=== PATIENT | female | born 1980 | race Hispanic/Latino ===

== ENCOUNTER 2018-07-12 08:25 | Day surgery (SDC) | payer OTHER ==
--- OUTSIDE RECORDS SUMMARY | 2018-07-12 08:32 | XMS REPORT | Clinical Summary ---
:1980 Author Organization [facility] Address [address] [place] [id number] Care Team Providers Name Role Phone Asked, No Pcp Primary Care Provider Unavailable Allergies Active Allergy Reactions Severity Noted Date Comments Iodine And Iodide Containing Shortness Of Breath High 02/13/2017 Injectable dye Products Sulfa (Sulfonamide Rash Low 02/13/2017 Antibiotics) Medications Medication Sig Dispensed Refills Start Date End Date Status acetaZOLAMIDE (DIAMOX) Take 500 mg by 0 Active 500 mg capsule mouth 2 (two) times a day. topiramate (TOPAMAX) 25 Take 25 mg by 0 Active MG tablet mouth 2 (two) times a day. losartan (COZAAR) 50 MG Take 50 mg by 0 Active tablet mouth daily. Active Problems Problem Noted Date Kidney stone 02/13/2017 Family History Medical History Relation Name Comments Urolithiasis Brother Diabetes Father Heart disease Father Hypertension Father Diabetes Mother Heart disease Mother Hypertension Mother Diabetes Sister Relation Name Status Comments Brother Father Mother Sister Social History Tobacco Use Types Packs/Day Years Used Date Never Smoker Tobacco Cessation: Counseling Given: No Alcohol Use Drinks/Week oz/Week Comments Yes 1 Glasses of wine 0.6 rarely -last weks ago Sex Assigned at Date Recorded Not on file Job Start Date Occupation Industry Not on file Not on file Not on file Travel History Travel Start Travel End No recent travel history available. Last Filed Vital Signs Not on file Plan of Treatment Health Maintenance Due Date Last Done Comments CERVICAL CANCER SCREENING 2001 INFLUENZA VACCINE 12/27/2017 Results Not on fileafter 07/11/2017 Insurance Payer Benefit Plan / Group Subscriber ID Type Phone Address CIGNA CIGNA PPO xxxxxxxxxxx PPO CIGNA CIGNA HMO/POS xxxxxxxxxxx HMO Advance Directives Patient has advance care planning documents, and code status on file. For more information, please contact:[place] [address] Code Status Date Activated Date Inactivated Comments Full Code 02/13/2017 10:58 PM 02/14/2017 7:22 PM Code Status decision reached by: Patient
[2018-07-12 09:49] LABS: Protime INR 1.04
[2018-07-12 10:23] LABS: Platelet Estimate INCR; Platelets, Giant FEW
--- NOTE | 2018-07-12 12:27 | RAD REPORT ---
EXAM DESCRIPTION: RAD - Lumbar Puncture For Dx - 07/12/2018 12:11 pm CLINICAL HISTORY: Headache, pseudotumor cerebri COMPARISON: January 2018 TECHNIQUE: The procedure, risks and alternatives to the procedure were discussed with the patient in detail. After answering all questions, both oral and written consent were obtained. Time-out proced ure was performed. Patient had no contraindicated allergy or medication history. The patient was placed in an oblique prone position on the fluoroscopic table. The skin of the lower back was prepped and draped in the usual sterile fashion. After anesthetizing the skin and deeper sof t tissues with 1% lidocaine, a 22 gauge needle was advanced into the thecal sac at the L3 level. Intrathecal placement was confirmed. Clear colorless CSF was observed. Opening pressure was 12. A hig h-volume LP was then initiated. A total of 25 milliliters of clear colorless CSF removed. At the conclusion of the procedure, the needle was withdrawn and a sterile bandage placed over the pu ncture site. The patient tolerated the procedure well without immediate complications. Post-procedu re care and precaution instructions were discussed with the patient before the LP procedure. IMPRESSION: Successful fluoroscopic guided lumbar puncture. Opening pressure was 12. A total of 25 milliliters of clear colorless CSF removed.
== END 2018-07-12 13:10 | disposition home or self-care (01) ==
LOC: RAD 08:25 → EDSTATUS 10:00 → RAD 13:10
PROVIDERS: ATTEND Psychiatry & Neurology Neurology with Special Qualifications in Child Neurology
DX: G93.2 Benign intracranial hypertension (principal); R51 Headache
CPT/HCPCS: 36415; 77003; 85049; 85610; 85730

== ENCOUNTER 2018-10-23 08:36 | Day surgery (SDC) | payer OTHER ==
--- OUTSIDE RECORDS SUMMARY | 2018-10-23 08:47 | XMS REPORT | Clinical Summary ---
:1980 Author Organization [facility] Address [address] [place] [id number] Care Team Providers Name Role Phone Asked, [...] Health Maintenance Due Date Last Done Comments INFLUENZA VACCINE 12/27/2018 Results Not on fileafter 10/22/2017 Advance Directives Patient has advance care planning documents, and code status on file. For more information, please contact:Jose Elias [address] [place] [address] Code Status Date Activated Date Inactivated Comments Full Code 02/13/2017 10:58 PM 02/14/2017 7:22 PM Code Status decision reached by: Patient
--- OUTSIDE RECORDS SUMMARY | 2018-10-23 08:47 | XMS REPORT | Clinical Summary ---
:1980 Author Organization [facility] Address [address] [place] [address] Care Team Providers Name Role Phone Asked, [...] more information, please contact:Jose Elias [address] [place] [address] Code Status Date Activated Date Inactivated Comments Full Code 02/13/2017 10:58 PM 02/14/2017 7:22 PM Code Status decision reached by: Patient
--- OUTSIDE RECORDS SUMMARY | 2018-10-23 08:48 | XMS REPORT | Clinical Summary ---
:1980 Author Organization [facility] Address [address] [place] [address] Care Team Providers Name Role Phone Asked, [...] more information, please contact:Jose Elias [address] [place] [address] Code Status Date Activated Date Inactivated Comments Full Code 02/13/2017 10:58 PM 02/14/2017 7:22 PM Code Status decision reached by: Patient
[2018-10-23 09:20] LABS: Absolute Lymphocytes (CBC) 2.4 K/uL (0.7-4.9); Absolute Monocytes 0.4 K/uL (0.1-1.3); Absolute Neutrophil 5.5 K/uL (1.8-8.0); Basophils % 0.6 % (0-1.3); Eosinophils % 1.9 % (0-4.4); Hematocrit 37.3 % (36.0-45.0); Lymphocytes % 27.8 % (15.3-44.8); Monocytes % 4.4 % (3.3-12.3); RBC Red Blood Cell Count 4.53 M/uL (3.86-4.86)
[2018-10-23 09:24] LABS: Protime INR 1.11
--- NOTE | 2018-10-23 11:49 | RAD REPORT ---
EXAM DESCRIPTION: RAD - Lumbar Puncture For Dx - 10/23/2018 11:41 am CLINICAL HISTORY: G93.2 COMPARISON: Multiple prior high volume lumbar puncture procedures TECHNIQUE: The procedure, risks and alternatives to the procedure were discussed with the patient in detail. After answering all questions, both oral and written consent were obtained. Time-out procedu re was performed. Patient had no contraindicated allergy or medication history. PT/INR studies were n ormal range. The patient was placed in an oblique prone position on the fluoroscopic table. The skin of the lower back was prepped and draped in the usual sterile fashion. After anesthetizing the skin and deeper sof t tissues with 1% lidocaine, a 22 gauge needle was advanced into the thecal sac at the L3 level. Intrathecal placement was confirmed. Clear colorless CSF was observed. Opening pressure was 14. A hig h-volume lumbar puncture procedure was then performed. A total of 31 cc of CSF was removed. At the conclusion of the procedure the needle was withdrawn and a sterile bandage placed over the pun cture site. The patient tolerated the procedure well without immediate complications. Post-procedure care and precaution instructions were discussed with the patient before the LP procedure. Patient was transferred back to same-day surgery for postprocedure care. IMPRESSION: Successful fluoroscopic guided high-volume lumbar puncture. Opening pressure was 14. A total of 31 mL was removed.
== END 2018-10-23 13:08 | disposition home or self-care (01) ==
LOC: RAD 08:36 → EDSTATUS 10:00 → DS 13:08
PROVIDERS: ATTEND Psychiatry & Neurology Neurology with Special Qualifications in Child Neurology
PROC: 009U3ZX Drainage of Spinal Canal, Percutaneous Approach, Diagnostic (ICD-10-PCS; principal; 2018-10-23)
PROC: B01BZZZ Fluoroscopy of Spinal Cord (ICD-10-PCS; 2018-10-23)
DX: G93.2 Benign intracranial hypertension (principal); G57.12 Meralgia paresthetica, left lower limb
CPT/HCPCS: 36415; 77003; 85025; 85610; 85730

== ENCOUNTER 2018-10-24 16:50 | Emergency (ER) | payer OTHER ==
[2018-10-24] MEDS ORDERED: FAMOTIDINE 20 MG/2 ML VIAL IV ONE (17:23)
[2018-10-24] MEDS ORDERED: NA CHLORIDE 0.9% 500 ML ONE (17:23)
[2018-10-24] MEDS ORDERED: METHYLPREDNISOLONE 125 MG INJ ONE (17:23)
[2018-10-24] MEDS ORDERED: EPINEPHRINE/PF 1 MG/ML AMP ONE (17:35)
[2018-10-24] MEDS ORDERED: EPINEPHrine 1 MG/10 ML SYR ONE (17:36)
[2018-10-24] MEDS ORDERED: NA CHLORIDE 0.9% 1,000 ML ONE (20:09)
--- NOTE | 2018-10-24 21:48 | EDPHYS ---
Physician Documentation [facility] Name: Melba Centeno Age: 38 yrs Sex: Female : 1980 Arrival Date: 10/24/2018 Time: 16:51 Bed 5 Private MD: ED Physician Kermit Mcclain HPI: 10/24 17:59 This 38 yrs old Female presents to ER via EMS with complaints of Allergic jr8 Reaction. 17:59 The patient presents with itching, rash, redness of skin, swelling of the lips. Onset: jr8 The symptoms/episode began/occurred acutely, today. Associated signs and symptoms: The patient has no apparent associated signs or symptoms. Possible causes: The patient has no known obvious cause for the symptoms. At home the patient or guardian has treated the symptoms with nothing. Severity of symptoms: At their worst the symptoms were moderate in the emergency department the symptoms have improved mildly. The patient has not experienced similar symptoms in the past. The patient has not recently seen a physician. EMS gave Benadryl 50mg IV enroute . Historical: - Allergies: 16:56 Iodinated Contrast Media - IV Dye; iw 16:56 Sulfa (Sulfonamide Antibiotics); iw - Home Meds: 17:28 Diamox Sequels Oral [Active]; losartan 50 mg Oral tab 1 tab once daily [Active]; sg Topamax Oral [Active]; - PMHx: 17:28 intracranial hypertension; sg - Immunization history:: Adult Immunizations up to date. - Social history:: Smoking status: Patient/guardian denies using tobacco. - Ebola Screening: : No symptoms or risks identified at this time. ROS: 17:59 Eyes: Negative for injury, pain, redness, and discharge. Positive for periorbital jr8 swelling ENT: Negative for injury, pain, and discharge, Neck: Negative for injury, pain, and swelling, Cardiovascular: Negative for chest pain, palpitations, and edema, Respiratory: Negative for shortness of breath, cough, wheezing, and pleuritic chest pain, Abdomen/GI: Negative for abdominal pain, nausea, vomiting, diarrhea, and constipation, Back: Negative for injury and pain, MS/Extremity: Negative for injury and deformity, Neuro: Negative for headache, weakness, numbness, tingling, and seizure. 17:59 Skin: Positive for erythema, rash, swelling. Exam: 17:59 Head/Face: Normocephalic, atraumatic. Eyes: Pupils equal round and reactive to light, jr8 extra-ocular motions intact. Lids and lashes normal. Conjunctiva and sclera are non-icteric and not injected. Cornea within normal limits. Periorbital areas with swelling and edema. ENT: Nares patent. No nasal discharge, no septal abnormalities noted. Tympanic membranes are normal and external auditory canals are clear. Oropharynx with no redness, swelling, or masses, exudates, or evidence of obstruction, uvula midline. Mucous membranes moist. Neck: Trachea midline, no thyromegaly or masses palpated, and no cervical lymphadenopathy. Supple, full range of motion without nuchal rigidity, or vertebral point tenderness. No Meningismus. Cardiovascular: Regular rate and rhythm with a normal S1 and S2. No gallops, murmurs, or rubs. Normal PMI, no JVD. No pulse deficits. Respiratory: Lungs have equal breath sounds bilaterally, clear to auscultation and percussion. No rales, rhonchi or wheezes noted. No increased work of breathing, no retractions or nasal flaring. Abdomen/GI: Soft, non-tender, with normal bowel sounds. No distension or tympany. No guarding or rebound. No evidence of tenderness throughout. Back: No spinal tenderness. No costovertebral tenderness. Full range of motion. MS/ Extremity: Pulses equal, no cyanosis. Neurovascular intact. Full, normal range of motion. Neuro: Awake and alert, GCS 15, oriented to person, place, time, and situation. Cranial nerves II-XII grossly intact. Motor strength 5/5 in all extremities. Sensory grossly intact. Cerebellar exam normal. Normal gait. 17:59 Skin: redness and urticaria noted diffusely to upper extremities, chest, and neck . Vital Signs: 17:15 BP 152 / 101; Pulse 118; Resp 20; Pulse Ox 99% on R/A; sg 18:12 BP 141 / 89; Pulse 126; Resp 18 S; Pulse Ox 98% on R/A; Pain 0/10; iw 18:24 BP 129 / 89; Pulse 119; Resp 18 S; Pulse Ox 99% on R/A; iw 19:15 BP 130 / 87; Pulse 122; Resp 19; Pulse Ox 98% on R/A; lp1 20:00 BP 117 / 81; Pulse 120; Resp 20; Pulse Ox 99% on R/A; Pain 0/10; lp1 21:58 BP 135 / 92; Pulse 123; Resp 18; Temp 97.3(TE); Pulse Ox 100% on R/A; Pain 0/10; ed1 MDM: 16:55 Patient medically screened. jr8 17:59 Data reviewed: vital signs, nurses notes. Data interpreted: Pulse oximetry: on room air jr8 is 99 %. Interpretation: normal. Counseling: I had a detailed discussion with the patient and/or guardian regarding: the historical points, exam findings, and any diagnostic results supporting the discharge/admit diagnosis. Transition of care: After a detail discussion of the patient's case, care is transferred to Dilshad Rapp NP. ED course: Patient doing well after epinephrine given. Will monitor for next few hours . 10/24 18:18 Order name: EKG Electrocardiogram; Complete Time: 18:17 EDMS Administered Medications: 17:12 Drug: SOLU-Medrol 125 mg Route: IVP; Site: left antecubital; iw 17:12 Drug: Pepcid 20 mg Route: IVP; Site: left antecubital; iw 17:12 Drug: NS 0.9% 500 ml Route: IV; Rate: bolus; Site: left antecubital; iw 17:25 Drug: EPINEPHrine 1mg/mL 1:1,000 0.3 mg Route: IM; Site: right deltoid; sg 20:00 Drug: NS 0.9% 1000 ml Route: IV; Rate: 1000 ml; Site: left forearm; lp1 21:24 Follow up: IV Status: Completed infusion; IV Intake: 1000ml lp1 Disposition: 10/25 07:07 Co-signature as Attending Physician, Kermit Mcclain MD I agree with the assessment and warner plan of care. Disposition: 10/24/18 21:47 Discharged to Home. Impression: Allergic reaction, unspecified - facial swelling, Urticaria, unspecified. - Condition is Stable. - Discharge Instructions: Allergies, Adult, Hives. - Prescriptions for Benadryl 25 mg Oral Capsule - take 1 capsule by ORAL route every 6 hours As needed; 30 tablet. Pepcid 20 mg Oral Tablet - take 1 tablet by ORAL route every 12 hours for 10 days; 20 tablet. Prednisone 20 mg Oral Tablet - take 3 tablet by ORAL route once daily for 5 days; 15 tablet. EpiPen 0.3 mg Injection auto- injector - inject 1 pen by INTRAMUSCULAR route one time As needed Inject into the outer portion of the thigh, through clothing if necessary. Indicated in the emergency treatment of allergic reactions; 1 unit. - Medication Reconciliation Form, Thank You Letter, Antibiotic Education, Prescription Opioid Use form. - Follow up: Emergency Department; When: As needed; Reason: Worsening of condition. Follow up: Private Physician; When: 2 - 3 days; Reason: Recheck today's complaints, Continuance of care, Re-evaluation by your physician. - Problem is new. - Symptoms have improved. Signatures: Dispatcher [employer] EDMS Jose Guaman, RN RN Kermit Gordillo MD MD cha Williams, Irene RN RN iw Rosita Grover RN RN ed1 Chata Lenz RN RN lp1 Darío Manuel PA PA jr8 Dilshad Rapp, PODIATRIST ORTHOPEDIC PODIATRIST ORTHOPEDIC pm1 Corrections: (The following items were deleted from the chart) 10/24 22:05 21:47 10/24/2018 21:47 Discharged to Home. Impression: Allergic reaction, unspecified - ed1 facial swellingUrticaria, unspecified. Condition is Stable. Forms are Medication Reconciliation Form, Thank You Letter, Antibiotic Education, Prescription Opioid Use. Follow up: Emergency Department; When: As needed; Reason: Worsening of condition. Follow up: Private Physician; When: 2 - 3 days; Reason: Recheck today's complaints, Continuance of care, Re-evaluation by your physician. Problem is new. Symptoms have improved. pm1
--- NOTE | 2018-10-24 21:48 | ER ---
Nurse's Notes [facility] Name: Melba Centeno Age: 38 yrs Sex: Female : 1980 Arrival Date: 10/24/2018 Time: 16:51 Bed 5 Private MD: Diagnosis: Urticaria, unspecified;Allergic reaction, unspecified - facial swelling Presentation: 10/24 16:53 Presenting complaint: EMS states: pt woke up this morning with some mild facial iw swelling, took 2 PO Benadryl and felt fine, then started having increased facial swelling while cleaning, also reported throat irritation, hives all over body, denies SOB, lungs CTA. Transition of care: patient was not received from another setting of care. Onset: The symptoms/episode began/occurred today. Anaphylaxis evaluation, no signs or symptoms of anaphylaxis were noted. Onset of symptoms was October 24, 2018. Risk Assessment: Do you want to hurt yourself or someone else? Patient reports no desire to harm self or others. Initial Sepsis Screen: Does the patient meet any 2 criteria? No. Patient's initial sepsis screen is negative. Does the patient have a suspected source of infection? No. Patient's initial sepsis screen is negative. Care prior to arrival: Medication(s) given: Benadryl 50 mg IVP IV initiated. 22 GA, in the left antecubital area, Med neb given. 16:53 Method Of Arrival: EMS: [facility] iw 16:53 Acuity: TAHIR 3 iw 17:12 Acuity: TAHIR 2 iw Historical: - Allergies: 16:56 Iodinated Contrast Media - IV Dye; iw 16:56 Sulfa (Sulfonamide Antibiotics); iw - Home Meds: 17:28 Diamox Sequels Oral [Active]; losartan 50 mg Oral tab 1 tab once daily [Active]; sg Topamax Oral [Active]; - PMHx: 17:28 intracranial hypertension; sg - Immunization history:: Adult Immunizations up to date. - Social history:: Smoking status: Patient/guardian denies using tobacco. - Ebola Screening: : No symptoms or risks identified at this time. Screenin:15 Abuse screen: Denies threats or abuse. Denies injuries from another. Nutritional sg screening: No deficits noted. Tuberculosis screening: No symptoms or risk factors identified. Never had TB. Fall Risk None identified. Assessment: 17:15 General: Appears in no apparent distress. well groomed, well developed, well nourished, sg Behavior is calm, cooperative, appropriate for age. Pain: Denies pain. Neuro: Level of Consciousness is awake, alert, obeys commands, Oriented to person, place, time, situation, Open Hearth Helper are equal bilaterally Moves all extremities. Full function Gait is steady, Speech is normal, Facial symmetry appears normal. Cardiovascular: Heart tones S1 S2 present Capillary refill is brisk in bilateral fingers Patient's skin is warm and dry. Chest pain is denied. Respiratory: Airway is patent Respiratory effort is even, unlabored, Respiratory pattern is regular, symmetrical, Breath sounds are clear bilaterally. GI: Abdomen is round non-distended, Bowel sounds present X 4 quads. : No signs and/or symptoms were reported regarding the genitourinary system. EENT: No signs and/or symptoms were reported regarding the EENT system. Derm: Skin is pink, warm \\T\\ dry. Rash noted that is urticaria. Musculoskeletal: No signs and/or symptoms reported regarding the musculoskeletal system. 17:46 Reassessment: Patient appears in no apparent distress at this time. Patient and/or iw family updated on plan of care and expected duration. Pain level reassessed. Patient is alert, oriented x 3, equal unlabored respirations, skin warm/dry/pink. pt states she is feeling better, throat irritation has decreased and swelling to right eye has decreased, family at bedside, VSS, pt tachycardiac at 118 bpm. 18:19 Reassessment: Patient appears in no apparent distress at this time. Patient and/or sg family updated on plan of care and expected duration. Pain level reassessed. Patient is alert, oriented x 3, equal unlabored respirations, skin warm/dry/pink. pt family at bedside at this time, pt denies N/V at this time, tolerating PO water Patient states feeling better. Patient states symptoms have improved. 19:09 Reassessment: Patient appears in no apparent distress at this time. Patient and/or sg family updated on plan of care and expected duration. Pain level reassessed. Patient is alert, oriented x 3, equal unlabored respirations, skin warm/dry/pink. Patient states feeling better. Patient states symptoms have improved. Reassessment: swelling to R eye has decreased. Respiratory: Airway is patent Respiratory effort is even, unlabored, Respiratory pattern is regular, symmetrical. Derm: Skin is pink, warm \\T\\ dry. 19:30 Reassessment: Patient appears in no apparent distress at this time. Patient states lp1 feeling better. Reassessment: Patient states feeling "jittery". EENT: swelling to right upper eye lid. Derm: Skin is pink, warm \\T\\ dry. 20:30 Reassessment: Patient appears in no apparent distress at this time. Patient ready to go lp1 home; states "just feeling tired" Patient states feeling better. 21:28 Reassessment: Patient appears in no apparent distress at this time. No changes from lp1 previously documented assessment. 21:58 Reassessment: Patient appears in no apparent distress at this time. Patient and/or ed1 family updated on plan of care and expected duration. Pain level reassessed. Patient is alert, oriented x 3, equal unlabored respirations, skin warm/dry/pink. Patient denies pain at this time. Patient states feeling better. Patient states symptoms have improved. Respiratory: Airway is patent Respiratory effort is even, unlabored, Respiratory pattern is regular, symmetrical, Breath sounds are clear bilaterally. Denies shortness of breath. Vital Signs: 17:15 BP 152 / 101; Pulse 118; Resp 20; Pulse Ox 99% on R/A; sg 18:12 BP 141 / 89; Pulse 126; Resp 18 S; Pulse Ox 98% on R/A; Pain 0/10; iw 18:24 BP 129 / 89; Pulse 119; Resp 18 S; Pulse Ox 99% on R/A; iw 19:15 BP 130 / 87; Pulse 122; Resp 19; Pulse Ox 98% on R/A; lp1 20:00 BP 117 / 81; Pulse 120; Resp 20; Pulse Ox 99% on R/A; Pain 0/10; lp1 21:58 BP 135 / 92; Pulse 123; Resp 18; Temp 97.3(TE); Pulse Ox 100% on R/A; Pain 0/10; ed1 Vitals: 18:12 Cardiac Rhythm Assessment Sinus tach. iw ED Course: 16:51 Patient arrived in ED. iw 16:55 Darío Manuel PA is PHCP. jr8 16:55 Kermit Mcclain MD is Attending Physician. jr8 16:56 Triage completed. iw 17:08 EKG done, by electrical instrumentation technician. reviewed by Darío TRIPATHI. sm3 17:15 Jose Guaman, RN is Primary Nurse. sg 17:15 Patient has correct armband on for positive identification. Bed in low position. Call sg light in reach. Pulse ox on. NIBP on. 19:57 Primary Nurse role handed off by Jose Guaman, BRIGETTE ed1 20:00 Chata Lenz, RN is Primary Nurse. lp1 20:18 Arm band placed on. lp1 20:21 No provider procedures requiring assistance completed. lp1 21:01 PHCP role handed off by Darío Manuel PA pm1 21:01 Dilshad Rapp NP is PHCP. pm1 21:58 IV discontinued, intact, bleeding controlled, No redness/swelling at site. Pressure ed1 dressing applied. Administered Medications: 17:12 Drug: SOLU-Medrol 125 mg Route: IVP; Site: left antecubital; iw 17:12 Drug: Pepcid 20 mg Route: IVP; Site: left antecubital; iw 17:12 Drug: NS 0.9% 500 ml Route: IV; Rate: bolus; Site: left antecubital; iw 17:25 Drug: EPINEPHrine 1mg/mL 1:1,000 0.3 mg Route: IM; Site: right deltoid; sg 20:00 Drug: NS 0.9% 1000 ml Route: IV; Rate: 1000 ml; Site: left forearm; lp1 21:24 Follow up: IV Status: Completed infusion; IV Intake: 1000ml lp1 Intake: 21:24 IV: 1000ml; Total: 1000ml. lp1 Outcome: 21:47 Discharge ordered by MD. pm1 21:58 Discharged to home ambulatory, with significant other. ed1 21:58 Condition: improved 21:58 Discharge instructions given to patient, significant other, Instructed on discharge instructions, follow up and referral plans. medication usage, Demonstrated understanding of instructions, follow-up care, medications, Prescriptions given X 4. 22:05 Patient left the ED. ed1 Signatures: Jose Guaman RN RN Irene Gan RN RN Rosita Grover RN RN ed1 Chata Lenz RN RN lp1 Darío Manuel PA PA jr Dilshad Rapp NP CLOTH NAPPING SUPERVISOR pm1 Nazia Reyes sm3 Corrections: (The following items were deleted from the chart) 16:56 16:53 Acuity: TAHIR 2 iw iw
--- OUTSIDE RECORDS SUMMARY | 2018-10-25 12:23 | XMS REPORT | Clinical Summary ---
:1980 Author Organization [facility] Address [address] [place] [address] Care Team Providers Name Role Phone Asked, [...] INFLUENZA VACCINE 12/27/2018 Results Not on fileafter 10/24/2017 Advance Directives Patient has advance care planning documents, and code status on file. For more information, please contact:Jose Elias [address] [place] [address] Code Status Date Activated Date Inactivated Comments Full Code 02/13/2017 10:58 PM 02/14/2017 7:22 PM Code Status decision reached by: Patient
--- NOTE | 2018-10-26 08:43 | EKG ---
Test Date: 2018-10-24 Test Time: 16:59:23 Metalizing Machine Operator Automatic: ZEUS MEASUREMENT RESULTS: Intervals: Rate: 114 MS: 162 QRSD: 78 QT: 342 QTc: 471 Kent: P: 48 MS: 162 QRS: 79 T: 57 INTERPRETIVE STATEMENTS: Sinus tachycardia Otherwise normal ECG Compared to ECG 07/19/2017 10:31:55 No significant changes Electronically Signed On 10-26-18 08:40:37 CDT by Anthony Wayne
== END 2018-10-24 22:05 | disposition home or self-care (01) ==
LOC: ER 16:50
DX: L50.0 Allergic urticaria (principal); G93.2 Benign intracranial hypertension; Z88.2 Allergy status to sulfonamides; Z91.041 Radiographic dye allergy status
CPT/HCPCS: 93005; 96361; 96372; 96374; 96375; 99284; J0171; J2930; J7030

== ENCOUNTER 2018-11-21 14:47 | Emergency (ER) | payer OTHER ==
--- OUTSIDE RECORDS SUMMARY | 2018-11-21 14:54 | XMS REPORT | Clinical Summary ---
:1980 Author Organization [facility] Address [address] [place] [address] Care Team Providers Name Role Phone Asked, [...] INFLUENZA VACCINE 12/27/2018 Results Not on fileafter 11/20/2017 Advance Directives Patient has advance care planning documents, and code status on file. For more information, please contact:Jose Elias [address] [place] [address] Code Status Date Activated Date Inactivated Comments Full Code 02/13/2017 10:58 PM 02/14/2017 7:22 PM Code Status decision reached by: Patient
[2018-11-21] MEDS ORDERED: FAMOTIDINE 20 MG/2 ML VIAL IV ONE (15:14)
[2018-11-21] MEDS ORDERED: METHYLPREDNISOLONE 125 MG INJ ONE ×2 (15:14→15:45)
[2018-11-21] MEDS ORDERED: DIPHENHYDRAMINE 50 MG/ML VIAL ONE ×2 (15:14→15:45)
[2018-11-21] MEDS ORDERED: NA CHLORIDE 0.9% 500 ML ONE (15:17)
--- NOTE | 2018-11-21 16:59 | EDPHYS ---
Physician Documentation [facility] Name: Melba Centeno Age: 38 yrs Sex: Female : 1980 Arrival Date: 11/21/2018 Time: 14:49 Bed 4 Private MD: Wendy Haji K ED Physician Miguel Ángel Rivera HPI: 11/21 17:12 This 38 yrs old Female presents to ER via Wheelchair with complaints of kdr Allergic Reaction. 17:12 The patient presents with itching, Generalized swelling. Onset: The symptoms/episode kdr began/occurred suddenly, just prior to arrival, 1 hour(s) ago. Associated signs and symptoms: Pertinent positives: light headed, shortness of breath, swelling. Possible causes: The patient has no known obvious cause for the symptoms. At home the patient or guardian has treated the symptoms with Benadryl. Severity of symptoms: At their worst the symptoms were mild moderate just prior to arrival, in the emergency department the symptoms are unchanged. The patient has experienced similar episodes in the past, a few times. The patient has not recently seen a physician. Historical: - Allergies: 14:58 Iodinated Contrast Media - IV Dye; aj 14:58 Sulfa (Sulfonamide Antibiotics); aj - PMHx: 16:05 intracranial hypertension; sv - Immunization history:: Adult Immunizations up to date. - Social history:: Smoking status: Patient/guardian denies using tobacco. - Ebola Screening: : No symptoms or risks identified at this time. ROS: 17:12 Constitutional: Negative for fever, chills, and weight loss, Eyes: Negative for injury, kdr pain, redness, and discharge, ENT: Negative for injury, pain, and discharge, Neck: Negative for injury, pain, and swelling, Cardiovascular: Negative for chest pain, palpitations, and edema, Abdomen/GI: Negative for abdominal pain, nausea, vomiting, diarrhea, and constipation, Back: Negative for injury and pain, : Negative for injury, bleeding, discharge, and swelling, MS/Extremity: Negative for injury and deformity, Skin: Negative for injury, rash, and discoloration, Neuro: Negative for headache, weakness, numbness, tingling, and seizure activity. Psych: Negative for depression, anxiety, suicide ideation, homicidal ideation, and hallucinations, Endocrine: Negative for neck swelling, polydipsia, polyuria, polyphagia, and marked weight changes, Hematologic/Lymphatic: Negative for swollen nodes, abnormal bleeding, and unusual bruising. 17:12 Respiratory: Positive for shortness of breath, at rest. Negative for cough, dyspnea on exertion, hemoptysis, orthopnea, pleurisy, sputum production. 17:12 Skin: Positive for swelling. Exam: 17:12 Constitutional: This is a well developed, well nourished patient who is awake, alert, kdr and in mild distress. Head/Face: Normocephalic, atraumatic. Eyes: Pupils equal round and reactive to light, extra-ocular motions intact. Lids and lashes normal. Conjunctiva and sclera are non-icteric and not injected. Cornea within normal limits. Periorbital areas with no swelling, redness, or edema. Neck: Trachea midline, no thyromegaly or masses palpated, and no cervical lymphadenopathy. Supple, full range of motion without nuchal rigidity, or vertebral point tenderness. No Meningismus. Chest/axilla: Normal chest wall appearance and motion. Nontender with no deformity. No lesions are appreciated. Cardiovascular: Regular rate and rhythm with a normal S1 and S2. No gallops, murmurs, or rubs. Normal PMI, no JVD. No pulse deficits. Respiratory: Lungs have equal breath sounds bilaterally, clear to auscultation and percussion. No rales, rhonchi or wheezes noted. No increased work of breathing, no retractions or nasal flaring. Abdomen/GI: Soft, non-tender, with normal bowel sounds. No distension or tympany. No guarding or rebound. No evidence of tenderness throughout. Back: No spinal tenderness. No costovertebral tenderness. Full range of motion. Skin: Warm, dry with normal turgor. Normal color with no rashes, no lesions, and no evidence of cellulitis. MS/ Extremity: Pulses equal, no cyanosis. Neurovascular intact. Full, normal range of motion. Neuro: Awake and alert, GCS 15, oriented to person, place, time, and situation. Cranial nerves II-XII grossly intact. Motor strength 5/5 in all extremities. Sensory grossly intact. Cerebellar exam normal. Normal gait. Psych: Awake, alert, with orientation to person, place and time. Behavior, mood, and affect are within normal limits. 17:12 Skin: Generalized upper body, face and neck swelling that is diffuse. kdr Vital Signs: 14:58 BP 141 / 91; Pulse 139; Resp 20; Temp 99.3; Pulse Ox 96% on R/A; Weight 90.72 kg; aj Height 4 ft. 11 in. (149.86 cm); 15:03 Pulse Ox 92% on R/A; sv 16:05 BP 153 / 93; Pulse 118; Resp 15; Pulse Ox 99% on 2 lpm NC; sv 17:06 BP 145 / 90; Pulse 116 MON; Resp 16; Pulse Ox 99% on R/A; sv 14:58 Body Mass Index 40.39 (90.72 kg, 149.86 cm) aj 17:06 Sinus tachycardia sv 15:03 Pt placed on O2 \T\ 2L per NC. O2 sat up to 96%. sv MDM: 16:58 Patient medically screened. kdr 17:12 Data reviewed: vital signs, nurses notes, lab test result(s), radiologic studies. kdr Counseling: I had a detailed discussion with the patient and/or guardian regarding: the historical points, exam findings, and any diagnostic results supporting the discharge/admit diagnosis, lab results, radiology results, the need for outpatient follow up. Administered Medications: 15:03 Drug: Pepcid 20 mg Route: IVP; Site: right hand; sv 15:30 Follow up: Response: No adverse reaction; No change in condition sv 15:03 Drug: NS 0.9% 500 ml Route: IV; Rate: bolus; Site: right hand; aa5 16:00 Follow up: Response: No adverse reaction; IV Status: Completed infusion; IV Intake: sv 500ml 15:05 Drug: SOLU-Medrol 125 mg Route: IVP; Site: right hand; sv 15:30 Follow up: Response: No adverse reaction; No change in condition sv 15:07 Drug: Benadryl 25 mg Route: IVP; Site: right hand; sv 15:30 Follow up: Response: No adverse reaction; No change in condition sv 15:33 Drug: Benadryl 50 mg Route: IVP; Site: right hand; sv 16:00 Follow up: Response: No adverse reaction sv 15:35 Drug: SOLU-Medrol 125 mg Route: IVP; Site: right hand; sv 16:00 Follow up: Response: No adverse reaction sv Disposition: 11/21/18 16:58 Discharged to Home. Impression: Acute Allergic Reaction. - Condition is Stable. - Discharge Instructions: Allergies, Adult. - Prescriptions for Benadryl 25 mg Oral Capsule - take 2 capsule by ORAL route every 6 hours As needed; 30 tablet. Medrol (Rob) 4 mg Oral Tablets, Dose Pack - take 1 tablet by ORAL route as directed - follow package instructions; 1 packet. Pepcid 20 mg Oral Tablet - take 1 tablet by ORAL route once daily; 20 tablet. - Medication Reconciliation Form, Thank You Letter form. - Follow up: Wendy Haji MD; When: 2 - 3 days; Reason: If symptoms return, Further diagnostic work-up, Recheck today's complaints, Continuance of care, Re-evaluation by your physician. - Problem is new. - Symptoms have improved. Signatures: Enedina Siddiqui RN RN sv Myers, Amanda, RN RN aj Rittger, Kevin, MD MD [facility] Ai Caballero RN RN aa5 Corrections: (The following items were deleted from the chart) 17:07 16:58 11/21/2018 16:58 Discharged to Home. Impression: Acute Allergic Reaction. sv Condition is Stable. Forms are Medication Reconciliation Form, Thank You Letter, Antibiotic Education, Prescription Opioid Use. Follow up: Wendy Haji; When: 2 - 3 days; Reason: If symptoms return, Further diagnostic work-up, Recheck today's complaints, Continuance of care, Re-evaluation by your physician. Problem is new. Symptoms have improved. kdr
--- NOTE | 2018-11-21 16:59 | ER ---
Nurse's Notes [facility] Name: Melba Centeno Age: 38 yrs Sex: Female : 1980 Arrival Date: 11/21/2018 Time: 14:49 Bed 4 Private MD: Wendy Haji K Diagnosis: Acute Allergic Reaction Presentation: 11/21 14:56 Presenting complaint: Patient states: Allergic reaction to unknown substance that aj started today at 1320. Reports taking Benadryl 50 mg at 1345. Swelling to bilateral eye lids, throat, and red rash to arms and face. Onset: The symptoms/episode began/occurred suddenly. 14:56 Acuity: TAHIR 2 aj 15:03 Transition of care: patient was not received from another setting of care. Anaphylaxis sv evaluation, no signs or symptoms of anaphylaxis were noted. Onset of symptoms was November 21, 2018. Risk Assessment: Do you want to hurt yourself or someone else? Patient reports no desire to harm self or others. Initial Sepsis Screen: Does the patient meet any 2 criteria? HR > 90 bpm. No. Patient's initial sepsis screen is negative. Does the patient have a suspected source of infection? No. Patient's initial sepsis screen is negative. Care prior to arrival: None. 15:03 Method Of Arrival: Wheelchair sv Triage Assessment: 14:58 General: Appears in no apparent distress. uncomfortable, Behavior is calm, cooperative. aj Pain: Denies pain. Neuro: Level of Consciousness is awake, alert, obeys commands, Oriented to person, place, time, situation, Appropriate for age. Respiratory: Airway is patent Respiratory effort is even, unlabored, Respiratory pattern is regular, symmetrical. Derm: Skin is intact, is healthy with good turgor, Skin is pink, warm \T\ dry. normal, Rash noted that is red, on face, right arm and left arm. Historical: - Allergies: 14:58 Iodinated Contrast Media - IV Dye; aj 14:58 Sulfa (Sulfonamide Antibiotics); aj - PMHx: 16:05 intracranial hypertension; sv - Immunization history:: Adult Immunizations up to date. - Social history:: Smoking status: Patient/guardian denies using tobacco. - Ebola Screening: : No symptoms or risks identified at this time. Screenin:03 Abuse screen: Denies threats or abuse. Denies injuries from another. Nutritional sv screening: No deficits noted. Tuberculosis screening: No symptoms or risk factors identified. Fall Risk None identified. Assessment: 15:03 General: Appears uncomfortable, well developed, Behavior is calm, cooperative, sv appropriate for age. Pain: Denies pain. Neuro: Level of Consciousness is awake, alert, obeys commands, Oriented to person, place, time, situation, Moves all extremities. Full function Gait is steady. Respiratory: Airway is patent Trachea midline Respiratory effort is even, unlabored, Respiratory pattern is regular, symmetrical, Breath sounds are clear bilaterally. Derm: Skin is pink, warm \T\ dry. Musculoskeletal: Swelling present in face. 15:30 Reassessment: Patient appears in no apparent distress at this time. Patient and/or sv family updated on plan of care and expected duration. Pain level reassessed. Patient is alert, oriented x 3, equal unlabored respirations, skin warm/dry/pink. Pt reports that her right eye feels a little more swollen. Patient states symptoms have not improved. 16:04 Reassessment: Patient appears in no apparent distress at this time. No changes from sv previously documented assessment. Patient and/or family updated on plan of care and expected duration. Pain level reassessed. Patient is alert, oriented x 3, equal unlabored respirations, skin warm/dry/pink. 17:06 Reassessment: Patient appears in no apparent distress at this time. Patient and/or sv family updated on plan of care and expected duration. Pain level reassessed. Patient is alert, oriented x 3, equal unlabored respirations, skin warm/dry/pink. Vital Signs: 14:58 BP 141 / 91; Pulse 139; Resp 20; Temp 99.3; Pulse Ox 96% on R/A; Weight 90.72 kg; aj Height 4 ft. 11 in. (149.86 cm); 15:03 Pulse Ox 92% on R/A; sv 16:05 BP 153 / 93; Pulse 118; Resp 15; Pulse Ox 99% on 2 lpm NC; sv 17:06 BP 145 / 90; Pulse 116 MON; Resp 16; Pulse Ox 99% on R/A; sv 14:58 Body Mass Index 40.39 (90.72 kg, 149.86 cm) aj 17:06 Sinus tachycardia sv 15:03 Pt placed on O2 \T\ 2L per NC. O2 sat up to 96%. sv ED Course: 14:49 Patient arrived in ED. as 14:49 Wendy Haji MD is Private Physician. as 14:55 Miguel Ángel Rivera MD is Attending Physician. kdr 14:57 Triage completed. aj 14:58 Arm band placed on left wrist. Patient placed in an exam room. aj 15:03 Patient has correct armband on for positive identification. Bed in low position. Call sv light in reach. Adult w/ patient. site monitor on. Pulse ox on. NIBP on. Door closed. Head of bed elevated. 15:06 Inserted saline lock: 20 gauge in right hand, using aseptic technique. Blood collected. em1 15:09 Enedina Siddiqui, BRIGETTE is Primary Nurse. sv 15:39 IV is patent, is intact, with fluids infusing freely. sv 16:58 Wendy Haji MD is Referral Physician. kdr 17:07 No provider procedures requiring assistance completed. IV discontinued, intact, sv bleeding controlled, No redness/swelling at site. Pressure dressing applied. Administered Medications: 15:03 Drug: Pepcid 20 mg Route: IVP; Site: right hand; sv 15:30 Follow up: Response: No adverse reaction; No change in condition sv 15:03 Drug: NS 0.9% 500 ml Route: IV; Rate: bolus; Site: right hand; aa5 16:00 Follow up: Response: No adverse reaction; IV Status: Completed infusion; IV Intake: sv 500ml 15:05 Drug: SOLU-Medrol 125 mg Route: IVP; Site: right hand; sv 15:30 Follow up: Response: No adverse reaction; No change in condition sv 15:07 Drug: Benadryl 25 mg Route: IVP; Site: right hand; sv 15:30 Follow up: Response: No adverse reaction; No change in condition sv 15:33 Drug: Benadryl 50 mg Route: IVP; Site: right hand; sv 16:00 Follow up: Response: No adverse reaction sv 15:35 Drug: SOLU-Medrol 125 mg Route: IVP; Site: right hand; sv 16:00 Follow up: Response: No adverse reaction sv Intake: 16:00 IV: 500ml; Total: 500ml. sv Outcome: 16:58 Discharge ordered by . kdr 17:07 Discharged to home ambulatory, with family. sv 17:07 Condition: stable 17:07 Condition: improved 17:07 Discharge instructions given to patient, family, Instructed on discharge instructions, follow up and referral plans. no drinking with medication, no driving heavy equipment, medication usage, Demonstrated understanding of instructions, follow-up care, medications, Prescriptions given X 3. 17:07 Patient left the ED. sv Signatures: Enedina Siddiqui RN RN sv Myers, Amanda RN Miguel Ángel Marroquin MD MD kdr Martinez, Emiliano Emerson em1 Ai Caballero, RN RN aa5
== END 2018-11-21 17:07 | disposition home or self-care (01) ==
LOC: ER 14:47
DX: T78.40XA Allergy, unspecified, initial encounter (principal); R60.9 Edema, unspecified; R06.02 Shortness of breath; Z88.2 Allergy status to sulfonamides; Z91.041 Radiographic dye allergy status
CPT/HCPCS: 96361; 96374; 96375; 99284; J2930

== ENCOUNTER 2020-02-14 08:32 | Day surgery (SDC) | payer OTHER ==
--- OUTSIDE RECORDS SUMMARY | 2020-02-14 08:39 | XMS REPORT | Clinical Summary ---
:1980 Author Organization [facility] Address [address] [place] [address] Care Team Providers Name Role Phone Asked, Pcp Primary Care Provider Unavailable Allergies Active Allergy Reactions Severity Noted Date Comments Iodine And Iodide Containing Shortness Of Breath High 02/13 Injectable dye Products Sulfa (Sulfonamide Rash Low [...] oz/Week Comments Yes 1 Glasses of wine 1.0 rarely -last w eks ago Sex Assigned at Date Recorded Not on file Job Start Date Occupation Industry Not on file Not on file Not on file Travel History Travel Start Travel End No recent travel history available. 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
--- OUTSIDE RECORDS SUMMARY | 2020-02-14 08:39 | XMS REPORT | Clinical Summary ---
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
--- OUTSIDE RECORDS SUMMARY | 2020-02-14 08:47 | XMS REPORT | Clinical Summary ---
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
[2020-02-14 09:22] LABS: MPV 8.7 fL (7.6-11.3)
[2020-02-14 09:27] LABS: Protime INR 1.08
[2020-02-14 09:29] VITALS: BMI 40.4
[2020-02-14 11:36] LABS: Platelet Estimate ADEQ
--- NOTE | 2020-02-14 13:03 | RAD REPORT ---
EXAM DESCRIPTION: RAD - Lumbar Puncture For Dx - 02/14/2020 12:19 pm CLINICAL HISTORY: Pseudotumor cerebri, recurring headaches COMPARISON: Multiple prior high-volume LP procedures TECHNIQUE: The procedure, risks and alternatives to the procedure were discussed with the patient in detail. After answering all questions, both oral and written consent were obtained. Time-out proced ure was performed. Patient had no contraindicated allergy or medication history. The patient was placed in an oblique prone position on the fluoroscopic table. The skin of the lower back was prepped and draped in the usual sterile fashion. After anesthetizing the skin and deeper sof t tissues with 1% lidocaine, a 22 gauge needle was advanced into the thecal sac at the L3 level. Intrathecal placement was confirmed. Clear colorless CSF was observed. Opening pressure was 19. This compared to an opening pressure of 14 on the April 2019 study. High-volume CSF removal was then un dertaken. 32 mL of CSF was removed. At the conclusion of the procedure, the needle was withdrawn and a sterile bandage placed over the pu ncture site. The patient tolerated the procedure well without immediate complications. Post-procedu re care and precaution instructions were discussed with the patient before the LP procedure. IMPRESSION: Successful high-volume fluoroscopic guided lumbar puncture. A total of 32 mL of clear colorless CSF was removed. Opening pressure was 19. This compared to a 14 o pening pressure April 2019.
[2020-02-14] MEDS ORDERED: HYDROCODONE/APAP 7.5/325 MG TAB ONE (13:23)
[2020-02-14 13:41] VITALS: TEMP 97.7
[2020-02-14 13:54] VITALS: BP 119/77; O2SAT 100
== END 2020-02-14 13:40 | disposition home or self-care (01) ==
LOC: DS 08:32 → RAD 08:35 → EDSTATUS 10:00 → DS 13:40
PROVIDERS: ATTEND Psychiatry & Neurology Neurology with Special Qualifications in Child Neurology
PROC: 009U3ZX Drainage of Spinal Canal, Percutaneous Approach, Diagnostic (ICD-10-PCS; principal; 2020-02-14)
DX: G93.2 Benign intracranial hypertension (principal); G57.12 Meralgia paresthetica, left lower limb; E66.8 Other obesity
CPT/HCPCS: 36415; 77003; 85049; 85610; 85730

== ENCOUNTER 2020-08-15 18:29 | Inpatient (IN) | payer OTHER ==
--- OUTSIDE RECORDS SUMMARY | 2020-08-15 18:32 | XMS REPORT | Continuity of Care Document ---
:1980 Author Organization [facility] t Address [address] [place] [address] Care Team Providers Name Role Phone Asked, Pcp Primary Care Physician Unavailable Lab, Fam Pob I Attending Clinician Unavailable Doctor Unassigned, Name Attending Clinician Unavailable Problems Condition Condition Condition Status Onset Resolution Last Treating Co mments Source Name Details Category Date Date Treatment Clinician Date Kidney Kidney Disease Active [place] stone stone 02-13 [facility] 00:00: st 00 Allergies, Adverse Reactions, Alerts Allergy Allergy Status Severity Reaction(s) Onset Inactive Treating Comm ents Source Name Type Date Date Clinician Iodine Propensi Active Shortness Of Injectabl [place] And ty to Breath 02-13 e dye [facility] Iodide adverse 00:00: st Containi reaction 00 ng s to Products drug Sulfa Propensi Active Rash [place] (Sulfona ty to 02-13 [facility] mide adverse 00:00: st Antibiot reaction 00 ics) s to drug Family History Family Member Diagnosis Comments Start Date Stop Date Source Natural mother Heart disease [facility] Natural mother Hypertension [facility] Natural mother Diabetes [facility] Natural sister Diabetes [facility] Natural brother Urolithiasis [facility] Natural father Diabetes [facility] Natural father Heart disease [facility] Natural father Hypertension [facility] Social History Social Habit Start Date Stop Date Quantity Comments Source Alcohol intake 2017-02-13 2017-02-13 Current drinker [place] [facility] 00:00:00 00:00:00 of alcohol (finding) Alcohol Comment 2017-02-13 2017-02-13 rarely -last [place] [facility] 00:00:00 00:00:00 weks ago Sex Ass[birth year] At [birth year] Jose Elias Cruz ethodist 00:00:00 00:00:00 Smoking Status Start Date Stop Date Source Never smoker [place] Elias Hurtadois t Medications Ordered Filled Start Stop Current Ordering Indication Dosage Frequency Signature Comments Components Source Medication Medication Date Date Medication? Clinician (SIG) Name Name acetaZOLAMI 2016- Yes 500mg Q.5D Take 500 [place] (DIAMOX) 9-19 mg by [facility] 500 mg 15:22: mouth 2 st capsule 57 (two) times a day. topiramate 2016- Yes 25mg Q.5D Take 25 mg [place] (TOPAMAX) 9-19 by mouth 2 Meth c[place] 25 MG 15:22: (two) st tablet 57 times a day. losartan 2016- Yes 50mg QD Take 50 mg Jakub ston (COZAAR) 50 9-19 by mouth Meth [place] MG tablet 15:22: daily. st 57 Procedures This patient has no known procedures. Plan of Care Planned Activity Planned Date Details Comments Source Future Scheduled 2019-12-28 INFLUENZA VACCINE [place] [facility] 00:00:00 [code = INFLUENZA VACCINE] Future Scheduled 2001 Screening for [facility] Test 00:00:00 malignant neoplasm of cervix (procedure) [code = 877590747] Future Scheduled 1996 COVID-19 VACCINE (1 [place] [facility] Test 00:00:00 of 2) [code = COVID-19 VACCINE (1 of 2)] Encounters Start End Encounter Admission Attending Care Care Encounter Source Date/Time Date/Time Type Type Clinicians Facility Department ID 2020-08-13 2020-08-13 Laboratory Lab, [facility] [id number] 16:46:49 17:06:49 Only Fam P[facility] [id number] [place] [id number] [place] [phone] nal [address] 2020-08-13 2020-08-13 Letter Doctor EDIE [id number] 00:00:00 00:00:00 (Out) Unassigned, [place] [id number] [place] [facility] [id number] Results This patient has no known results.
[2020-08-15 19:38] LABS: Absolute Lymphocytes (CBC) 0.6 K/uL (0.7-4.9); Basophils % 0.4 % (0-1.3); Hematocrit 37.8 % (36.0-45.0); Lymphocytes % 18.7 % (15.3-44.8); MPV 9.1 fL (7.6-11.3); RBC Red Blood Cell Count 4.75 M/uL (3.86-4.86)
[2020-08-15 19:40] LABS: Protime INR 1.17
[2020-08-15] MEDS ORDERED: METHYLPREDNISOLONE 125 MG INJ ONE (19:44)
[2020-08-15] MEDS ORDERED: ONDANSETRON 4 MG/2 ML VIAL ONE (19:45)
[2020-08-15] MEDS ORDERED: NA CHLORIDE 0.9% 500 ML ONE (19:45)
[2020-08-15 20:12] LABS: ALT/SGPT 23 U/L (12-78); AST/SGOT 20 U/L (15-37); Alkaline Phosphatase 76 U/L (45-117); BUN Blood Urea Nitrogen 9 mg/dL (7-18); Bicarbonate 21 mmol/L (21-32); Bilirubin Direct < 0.1 mg/dL (0-0.2); Bilirubin Total 0.3 mg/dL (0.2-1.0); Glucose Level 172 mg/dL (74-106); NT PRO-BNP 88 pg/mL (<125); Protein, Total 8.2 g/dL (6.4-8.2); Sodium Level 134 mmol/L (136-145); Troponin (Emerg Dept Use Only) < 0.02 ng/mL (0.0-0.045)
--- NOTE | 2020-08-15 20:27 | RAD REPORT ---
EXAM DESCRIPTION: RAD - Chest Single View - 08/15/2020 8:04 pm CLINICAL HISTORY: Cough;SOB Chest pain. COMPARISON: CHEST PA AND LAT 2 VIEW dated 01/26/2011 FINDINGS: Portable technique limits examination quality. Mild bilateral pulmonary opacities are present, greater the left. This likely represents viral infect ion. The heart is upper limit of normal in size. No displaced fractures.
--- NOTE | 2020-08-15 20:51 | EDPHYS ---
Physician Documentation [facility] Name: Melba Centeno Age: 39 yrs Sex: Female : 1980 Arrival Date: 08/15/2020 Time: 18:32 Bed 28 Private MD: ED Physician Herbie Flowers HPI: 08/15 18:54 This 39 yrs old Female presents to ER via Ambulatory with complaints of cp Shortness Of Breath - covid+, Nausea/Vomiting/Diarrhea. 18:54 The patient has shortness of breath at rest. cp 18:54 Onset: The symptoms/episode began/occurred 4 day(s) ago, and became worse 2 day(s) ago. cp 18:54 Duration: The symptoms are continuous, and are steadily getting worse. Associated signs cp and symptoms: Pertinent negatives: chest pain, fever. Patient reports being diagnosed with COVID-19 on 08-13-2020 at urgent care. Patient reports she is currently taking oral Zithromax. 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 - Social history:: Smoking status: Patient denies any tobacco usage or history of. ROS: 19:00 Constitutional: Negative for body aches, chills, fever, poor PO intake. cp 19:00 Eyes: Negative for injury, pain, redness, and discharge. cp 19:00 ENT: Negative for ear pain, sore throat, difficulty swallowing, difficulty handling secretions. 19:00 Cardiovascular: Negative for chest pain, edema, palpitations. 19:00 Respiratory: Positive for cough, dyspnea on exertion, Negative for wheezing. 19:00 Abdomen/GI: Negative for abdominal pain, nausea, vomiting, and diarrhea. 19:00 Back: Negative for radiated pain. 19:00 Neuro: Negative for altered mental status, headache, syncope, weakness. 19:00 All other systems are negative. Exam: 19:05 Constitutional: The patient appears in no acute distress, alert, awake, cp non-diaphoretic, non-toxic, well developed, well nourished. 19:05 Head/Face: Normocephalic, atraumatic. cp 19:05 Eyes: Periorbital structures: appear normal, Pupils: equal, round, and reactive to light and accomodation, Extraocular movements: intact throughout, Conjunctiva: normal, no exudate, no injection, Sclera: no appreciated abnormality, Lids and lashes: appear normal, bilaterally. 19:05 ENT: External ear(s): are unremarkable, Nose: is normal, Mouth: Posterior pharynx: Airway: no evidence of obstruction, patent. 19:05 Neck: ROM/movement: is normal, is supple, without pain, no range of motions limitations, no meningismus. 19:05 Chest/axilla: Inspection: normal, Palpation: is normal, no crepitus, no tenderness. 19:05 Cardiovascular: Rate: tachycardic, Rhythm: regular. 19:05 Respiratory: the patient does not display signs of respiratory distress, Respirations: cp labored breathing, that is mild, Breath sounds: bronchial sounds, that are mild, are heard diffusely, stridor, is not appreciated, wheezing: is not appreciated. 19:05 Abdomen/GI: Inspection: abdomen appears normal, Palpation: abdomen is soft and cp non-tender, in all quadrants. 19:05 Back: pain, is absent, ROM is normal. 19:05 Neuro: Orientation: to person, place \T\ time. Mentation: is normal, Motor: moves all fours, strength is normal, Gait: is steady. 19:25 ECG was reviewed by the Attending Physician. cp Vital Signs: 18:34 BP 117 / 79; Pulse 122; Resp 20 S; Temp 100.2(TE); ca1 18:37 Weight 104.33 kg (R); Height 4 ft. 11 in. (149.86 cm) (R); ca1 19:23 BP 118 / 79; Pulse 118; Resp 20 S; Pulse Ox 96% on R/A; iw 20:00 BP 106 / 70; Pulse 128; Resp 27; Pulse Ox 98% ; fu 21:00 BP 115 / 87; Pulse 116; Resp 31; Pulse Ox 95% ; fu 22:00 BP 114 / 80; Pulse 118; Resp 28; Pulse Ox 97% on R/A; Pain 0/10; fu 23:02 BP 111 / 73; Pulse 109; Resp 23; Temp 99.2(O); Pulse Ox 96% ; Pain 0/10; fu 18:37 Body Mass Index 46.45 (104.33 kg, 149.86 cm) ca1 MDM: 18:48 Patient medically screened. cp 20:45 Data reviewed: vital signs, nurses notes, lab test result(s), EKG, radiologic studies, cp plain films. 20:45 Differential diagnosis: pneumonia, pulmonary edema, Pulmonary Embolism Sepsis cp respiratory failure. Test interpretation: by ED physician or midlevel provider: ECG, plain radiologic studies. ED course: Patient ambulated in ED and observed to become short of breath while walking and oxygen sats dropped to 89% on room air. Will admit for continued treatment. 08/15 19:00 Order name: Basic Metabolic Panel; Complete Time: 20:16 cp 08/15 20:16 Interpretation: Normal except: NA 134; K 3.0; GLUC 172; GFR 85. cp 08/15 19:00 Order name: CBC with Diff; Complete Time: 20:16 cp 08/15 20:16 Interpretation: Normal except: WBC 3.10; MCV 79.6; MCH 26.5; RDW 15.4; IAM% 76.2; LYMA cp 0.6. 08/15 19:00 Order name: LFT's; Complete Time: 20:16 cp 08/15 19:00 Order name: Magnesium; Complete Time: 20:16 cp 08/15 19:00 Order name: NT PRO-BNP; Complete Time: 20:16 cp 08/15 19:00 Order name: PT-INR; Complete Time: 20:16 cp 08/15 19:00 Order name: Troponin (emerg Dept Use Only); Complete Time: 20:16 cp 08/15 19:00 Order name: XRAY Chest (1 view); Complete Time: 20:32 cp 08/15 20:32 Interpretation: Report reviewed. cp 08/15 19:00 Order name: D-Dimer; Complete Time: 20:16 cp 08/15 19:00 Order name: CRP; Complete Time: 20:16 cp 08/15 20:17 Interpretation: Abnormal: C-REACTIVE PROT 82.10. cp 08/15 22:05 Order name: Urine Dipstick--Ancillary (enter results) em 08/15 22:05 Order name: Urine --Ancillary (enter results) em 08/15 22:06 Order name: Urine Dipstick-Ancillary EDAL 08/15 22:06 Order name: Urine --Ancillary EDAL 08/15 19:00 Order name: EKG; Complete Time: 19:01 cp 08/15 19:00 Order name: Cardiac monitoring; Complete Time: 19:25 cp 08/15 19:00 Order name: EKG - Nurse/Tech; Complete Time: 19:25 cp 08/15 19:00 Order name: IV Saline Lock; Complete Time: 19:38 cp 08/15 19:00 Order name: Labs collected and sent; Complete Time: 19:25 cp 08/15 19:00 Order name: O2 Per Protocol; Complete Time: 19:25 cp 08/15 19:00 Order name: O2 Sat Monitoring; Complete Time: 19:25 cp 08/15 19:00 Order name: Urine Dipstick-Ancillary (obtain specimen); Complete Time: 22:04 cp 08/15 19:00 Order name: Urine Test (obtain specimen); Complete Time: 22:04 cp 08/15 20:18 Order name: Misc. Order: ambulate patient with pulse oximeter; Complete Time: 20:28 cp EC:25 Rate is 116 beats/min. Rhythm is regular. OR interval is normal. QRS interval is cp normal. QT interval is normal. Interpreted by me. Reviewed by me. Administered Medications: 19:37 Drug: SOLU-Medrol 125 mg Route: IVP; Site: right upper arm; fu 19:37 Drug: NS 0.9% 500 ml Route: IV; Rate: bolus; Site: right upper arm; fu 20:37 Follow up: Response: No adverse reaction fu 23:10 Follow up: IV Intake: 500ml fu 19:38 Drug: Zofran (Ondansetron) 4 mg Route: IVP; Infused Over: 2 mins; Site: right upper arm;fu 20:27 CANCELLED (Physician Discretion): NS 0.9% 500 ml IV at bolus once cp 21:54 Drug: Tylenol 1000 mg Route: PO; fu 23:10 Follow up: Response: Temperature is decreased fu 21:56 Drug: NS 0.9% 1000 ml Route: IV; Rate: 1000 ml; Site: right upper arm; fu 23:10 Follow up: Response: No adverse reaction; IV Intake: 1000ml fu 23:59 Follow up: Response: No adverse reaction; IV Status: Completed infusion; IV Intake: ea 1000ml 22:06 Drug: acetaZOLAMIDE 500 mg Route: PO; fu 23:10 Follow up: Response: No adverse reaction fu 22:06 Drug: Amitriptyline 25 mg Route: PO; fu 23:10 Follow up: Response: No adverse reaction fu Disposition: 08/16 06:05 Co-signature as Attending Physician, Herbie Flowers MD. 7 Disposition: 08/15/20 20:50 Hospitalization ordered by Jerry Nevarez for Inpatient Admission. Preliminary diagnosis are Other viral pneumonia - COVID-19, Dyspnea, Hypoxemia. - Bed requested for Telemetry/MedSurg (Inpatient). - Status is Inpatient Admission. ea - Condition is Stable. - Problem is new. - Symptoms have improved. Signatures: Dispatcher [employer] EDMS Ankush Funes, CANVAS SHOP LABORER-C CANVAS SHOP LABORER-Cla1 Kermit Romano PA PA cp Sabine Gee RN RN ea Umadhay, Felix, RN RN fu Acob, Cheryl, RN RN [facility] Herbie Flowers MD MD [facility] Rocio Tena RN RN rd1 Corrections: (The following items were deleted from the chart) 08/15 20:16 20:16 Normal except: WBC 3.10; MCV 79.6; MCH 26.5; RDW 15.4; IAM% 76.2. cp cp 20:27 20:26 NS 0.9% 500 ml IV at bolus once ordered. cp cp 22:37 20:50 Hospitalization Ordered by Jerry Nevarez MD for Inpatient Admission. Preliminary rd1 diagnosis is Other viral pneumonia - COVID-19; Dyspnea; Hypoxemia. Bed requested for Telemetry/MedSurg (Inpatient). Status is Inpatient Admission. Condition is Stable. Problem is new. Symptoms have improved. cp 23:58 22:37 08/15/2020 20:50 Hospitalization Ordered by Jerry Nevarez MD for Inpatient ea Admission. Preliminary diagnosis is Other viral pneumonia - COVID-19; Dyspnea; Hypoxemia. Bed requested for Telemetry/MedSurg (Inpatient). Status is Inpatient Admission. Condition is Stable. Problem is new. Symptoms have improved. rd1
--- NOTE | 2020-08-15 20:51 | ER ---
Nurse's Notes [facility] Name: Melba Centeno Age: 39 yrs Sex: Female : 1980 Arrival Date: 08/15/2020 Time: 18:32 Bed 28 Private MD: Diagnosis: Other viral [id number];Dyspnea;Hypoxemia Presentation: 08/15 18:34 Chief complaint: Patient states: Covid+ on 08/13/2020. S/S started 08/11/2020. Started ca1 with fatigue. Here today for SOB and diarrhea. Took Tylenol at 1630. Coronavirus screen: Client reports previous positive COVID test result. Date of collection: August 13, 2020 Staff notified of need for isolation. Ebola Screen: Patient negative for fever greater than or equal to 101.5 degrees Fahrenheit, and additional compatible Ebola Virus Disease symptoms Patient denies exposure to infectious person. Patient denies travel to an Ebola-affected area in the 21 days before illness onset. No symptoms or risks identified at this time. Initial Sepsis Screen: Does the patient meet any 2 criteria? No. Patient's initial sepsis screen is negative. Does the patient have a suspected source of infection? No. Patient's initial sepsis screen is negative. Risk Assessment: Do you want to hurt yourself or someone else? Patient reports no desire to harm self or others. Onset of symptoms was August 11, 2020. 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 - Social history:: Smoking status: Patient denies any tobacco usage or history of. Screenin:21 Abuse screen: Denies threats or abuse. Denies injuries from another. Nutritional iw screening: No deficits noted. Tuberculosis screening: No symptoms or risk factors identified. Fall Risk None identified. Assessment: 19:21 General: Appears in no apparent distress. Behavior is calm, cooperative. Pain: iw Complains of pain in body aches. Neuro: Level of Consciousness is awake, alert, obeys commands, Oriented to person, place, time, situation. Cardiovascular: Denies chest pain, Rhythm is. Respiratory: Reports cough that is non-productive, Airway is patent Respiratory effort is even, unlabored, Breath sounds are clear bilaterally. GI: Reports diarrhea, nausea, vomiting. Derm: Skin is intact, is healthy with good turgor. Musculoskeletal: Range of motion: intact in all extremities. 20:29 Reassessment: patient ambulated with pulse ox, O2 sat drops to 89%, SOB noted, PA fu notified. 21:49 Reassessment: Patient and/or family updated on plan of care and expected duration. Pain fu level reassessed. Patient is alert, oriented x 3, equal unlabored respirations, skin warm/dry/pink. 23:05 Reassessment: Patient and/or family updated on plan of care and expected duration. Pain fu level reassessed. Patient is alert, oriented x 3, equal unlabored respirations, skin warm/dry/pink. patient resting in bed, for admission, awaiting room assignment. Vital Signs: 18:34 BP 117 / 79; Pulse 122; Resp 20 S; Temp 100.2(TE); ca1 18:37 Weight 104.33 kg (R); Height 4 ft. 11 in. (149.86 cm) (R); ca1 19:23 BP 118 / 79; Pulse 118; Resp 20 S; Pulse Ox 96% on R/A; iw 20:00 BP 106 / 70; Pulse 128; Resp 27; Pulse Ox 98% ; fu 21:00 BP 115 / 87; Pulse 116; Resp 31; Pulse Ox 95% ; fu 22:00 BP 114 / 80; Pulse 118; Resp 28; Pulse Ox 97% on R/A; Pain 0/10; fu 23:02 BP 111 / 73; Pulse 109; Resp 23; Temp 99.2(O); Pulse Ox 96% ; Pain 0/10; fu 18:37 Body Mass Index 46.45 (104.33 kg, 149.86 cm) ca1 ED Course: 18:32 Patient arrived in ED. as 18:36 Triage completed. ca1 18:37 Arm band placed on right wrist. ca1 18:47 Kermit Romano PA is PHCP. cp 18:47 Kermit Mcclain MD is Attending Physician. cp 19:07 Esdras Perkins, BRIGETTE is Primary Nurse. fu 19:21 Initial lab(s) drawn, by me, sent to lab. iw 19:30 Herbie Flowers MD is Attending Physician. cp 20:00 Bed in low position. Call light in reach. Side rails up X 1. engineering supervisor on. Pulse fu ox on. NIBP on. 20:04 XRAY Chest (1 view) In Process Unspecified. EDMS 20:48 Jerry Nevarez MD is Hospitalizing Provider. cp 23:07 No provider procedures requiring assistance completed. fu 23:07 Patient admitted, IV remains in place. fu Administered Medications: 19:37 Drug: SOLU-Medrol 125 mg Route: IVP; Site: right upper arm; fu 19:37 Drug: NS 0.9% 500 ml Route: IV; Rate: bolus; Site: right upper arm; fu 20:37 Follow up: Response: No adverse reaction fu 23:10 Follow up: IV Intake: 500ml fu 19:38 Drug: Zofran (Ondansetron) 4 mg Route: IVP; Infused Over: 2 mins; Site: right upper arm;fu 20:27 CANCELLED (Physician Discretion): NS 0.9% 500 ml IV at bolus once cp 21:54 Drug: Tylenol 1000 mg Route: PO; fu 23:10 Follow up: Response: Temperature is decreased fu 21:56 Drug: NS 0.9% 1000 ml Route: IV; Rate: 1000 ml; Site: right upper arm; fu 23:10 Follow up: Response: No adverse reaction; IV Intake: 1000ml fu 23:59 Follow up: Response: No adverse reaction; IV Status: Completed infusion; IV Intake: ea 1000ml 22:06 Drug: acetaZOLAMIDE 500 mg Route: PO; fu 23:10 Follow up: Response: No adverse reaction fu 22:06 Drug: Amitriptyline 25 mg Route: PO; fu 23:10 Follow up: Response: No adverse reaction fu Intake: 23:10 IV: 1000ml; Total: 1000ml. fu 23:10 IV: 500ml; Total: 1500ml. fu 23:59 IV: 1000ml; Total: 2500ml. ea Outcome: 20:50 Decision to Hospitalize by Provider. cp 23:08 Condition: stable fu 23:08 Instructed on the need for admit. 23:10 Admitted to Med/surg accompanied by nurse, room 411, Report called to Silvia tolliver 23:58 Patient left the ED. irma Signatures: Dispatcher [employer] Emily Chase Irene, RN RN Kermit Bustamante PA PA cp Antunez, Elena, RN RN ea Umadhay, Felix, RN RN fu Acob, Cheryl RN BRIGETTE ca1 Corrections: (The following items were deleted from the chart) 08/16 02:34 03 23:08 Admitted to Tele room 411, [facility], [place]
[2020-08-15] MEDS ORDERED: NA CHLORIDE 0.9% 1,000 ML ONE (21:57)
[2020-08-15] MEDS ORDERED: ACETAMINOPHEN 500 MG TAB ONE (21:57)
[2020-08-15] MEDS ORDERED: AMITRIPTYLINE 25 MG TAB ONE (22:05)
[2020-08-15] MEDS ORDERED: acetaZOLAMIDE 250 MG TAB ONE (22:05)
--- NOTE | 2020-08-15 23:01 | P.HP ---
Certification for Inpatient Patient admitted to: Inpatient With expected LOS: >2 Midnights Patient will require the following post-hospital care: None Practitioner: I am a practitioner with admitting privileges, knowledge of patient current condition, hospital course, and medical plan of care. Services: Services provided to patient in accordance with Admission requirements found in Title 42 Section 412.3 of the Code of Federal Regulations <Ankush Funes - Last Filed: 08/15/20 22:58> Patient History Date of Service: 08/15/20 Reason for admission: COVID-19 pneumonia History of Present Illness: 39-year-old female with history of pseudotumor story right, hypertension presents emergency department for shortness of breath. Patient reports testing positive for Delgado virus on 08/14/2020 but reports symptoms since 08/12/2020. Patient evaluated in the emergency department labs significant for glucose 172 potassium 3.0 sodium 134 C. reactive protein 82.1. Chest x-ray suggest mild bilateral opacities, patient oxygen saturations at rest around 91-92 percent but with ambulation dips into the 80s. ED provider wishes to admit for Delgado virus infection. - Past Medical/Surgical History -: pseudotumor cerebri -: Obesity -: tubal ligation -: x2 Psychosocial/ Personal History: Patient is unemployed, lives with family - Family History Father -: Heart disease, Hypertension, Diabetes Mother -: Hypertension, Diabetes, Other (see notes) (Kidney stone) Brother -: Other (see notes) (Kidney stone) Sister -: Other (see notes) (Kidney stone) - Social History Smoking Status: Never smoker Alcohol use: Yes CD- Drugs: No Caffeine use: Yes Place of Residence: Home <Ankush Funes - Last Filed: 08/15/20 22:58> Date of Service: 08/16/20 <Jerry Nevarez - Last Filed: 08/16/20 21:48> Allergies Iodinated Contrast Media [Iodinated Contrast Media - IV Dye] Allergy (Verified 09/02/16 10:51) Itching losartan Allergy (Verified 08/16/20 05:55) Nausea/Vomiting Sulfa (Sulfonamide Antibiotics) Allergy (Verified 09/02/16 10:51) Anaphylaxis Home Medications: Acetazolamide [Diamox Sequels] 500 tab PO BID 06/16/14 Amitriptyline HCl 25 mg PO BID 02/16/18 Amlodipine Besylate [Norvasc] 5 mg PO DAILY 05/07/19 Metoprolol Succinate [Toprol Xl] 100 mg PO DAILY 05/07/19 Ascorbic Acid [Vitamin C*] 500 mg PO QID tablet 08/16/20 Aspirin [Aspirin EC 325 MG] 325 mg PO DAILY #30 tablet. 08/16/20 Benzonatate [Tessalon Perle*] 100 mg PO TID PRN #20 cap 08/16/20 Cholecalciferol (Vitamin D3) [Vitamin D 1000 Iu Tab*] 4,000 unit PO DAILY tab 08/16/20 Ivermectin 18 mg PO ONCE 1 Days #6 tablet 08/16/20 Ondansetron [Zofran] 4 mg PO Q6H PRN #15 tab 08/16/20 Thiamine HCl [Vitamin B-1*] 200 mg PO DAILY tablet 08/16/20 Zinc Sulfate [Zinc Sulfate*] 220 mg PO DAILY cap 08/16/20 predniSONE [Prednisone] 20 mg PO BID 10 Days #20 tablet 08/16/20 Review of Systems 10-point ROS is otherwise unremarkable General: Fever, Chills, Weakness, Malaise Respiratory: Cough, Shortness of Breath <Ankush Funes - Last Filed: 08/15/20 22:58> Physical Examination - Physical Exam General: Alert, In no apparent distress, Oriented x3, Obese HEENT: Atraumatic, PERRLA Neck: Supple, 2+ carotid pulse no bruit, No LAD Respiratory: Normal air movement, Diminished (Bilaterally) Cardiovascular: Regular rate/rhythm, Normal S1 S2 Gastrointestinal: Normal bowel sounds, No tenderness Musculoskeletal: No tenderness Integumentary: No rashes Neurological: Normal speech, Normal strength at 5/5 x4 extr, Normal tone, Normal affect - Studies Laboratory Data (last 24 hrs) 08/15/20 19:14: PT 13.5 H, INR 1.17 08/15/20 19:14: WBC 3.10 L, Hgb 12.6, Hct 37.8, Plt Count 187 08/15/20 19:14: Sodium 134 L, Potassium 3.0 L, BUN 9, Creatinine 0.76, Glucose 172 H, Magnesium 2.0, Total Bilirubin 0.3, AST 20, ALT 23, Alkaline Phosphatase 76 <Ankush Funes - Last Filed: 08/15/20 22:58> Assessment and Plan - Plan Assessment Dyspnea, hypoxia secondary to bilateral COVID pneumonia Pseudotumor cerebri, hypertension Plan Dyspnea, hypoxia secondary to bilateral COVID pneumonia: Continue with IV steroids, oral supplements, ivermectin. Trend CRP, ferritin levels. Pulmonology consult in place. Daily room air saturations, room air saturations for home oxygen. Titrate oxygen saturation to greater than 92%. DVT prophylaxis Lovenox 40 mg subcutaneous once daily. Pseudotumor cerebri, hypertension: Obtain and continue home medications. Discharge Plan: Home Plan to discharge in: 48 Hours - Advance Directives Does patient have a Living Will: No Does patient have a Durable POA for Healthcare: No - Code Status/Comfort Care Code Status Assessed: Yes (Full code) Critical Care: No Time Spent Managing Pts Care (In Minutes): 55 <Ankush Funes - Last Filed: 08/15/20 22:58> - Plan Plan of care reviewed as noted above. COVID-19 pneumonia, mild hypoxia, dyspnea continue treatment per protocol pulm consulted. <Jerry Nevarez - Last Filed: 08/16/20 21:48>
[2020-08-15] MEDS ORDERED: ONDANSETRON 4 MG/2 ML VIAL IV PRN (23:54)
[2020-08-15] MEDS ORDERED: MELATONIN 5 MG TABLET PO PRN (23:54)
[2020-08-15] MEDS ORDERED: ACETAMINOPHEN 500 MG TAB PO PRN (23:54)
[2020-08-15] MEDS ORDERED: BENZONATATE 100 MG CAP PO PRN (23:54)
[2020-08-16 00:26] LABS: Urine Appearance CLEAR; Urine Bilirubin NEGATIVE (NEG); Urine Blood NEGATIVE (NEG); Urine Color YELLOW; Urine Glucose NEGATIVE (NEG); Urine Protein NEGATIVE (NEG); Urine Specific Gravity <=1.005 (1.005-1.030); Urine Urobilinogen 0.2 mg/dL (0.2-1.0)
[2020-08-16 00:33] LABS: Urine Microscopic Reflex NO UMIC
[2020-08-16 01:30] VITALS: BMI 46.4
[2020-08-16 06:52] LABS: Absolute Lymphocytes (CBC) 0.6 K/uL (0.7-4.9); Basophils % 0.1 % (0-1.3); Hematocrit 36.2 % (36.0-45.0); Lymphocytes % 24.8 % (15.3-44.8)
[2020-08-16 08:49] LABS: ALT/SGPT 21 U/L (12-78); AST/SGOT 15 U/L (15-37); Albumin 2.6 g/dL (3.4-5.0); Alkaline Phosphatase 71 U/L (45-117); BUN Blood Urea Nitrogen 9 mg/dL (7-18); Bicarbonate 16 mmol/L (21-32); Bilirubin Total 0.2 mg/dL (0.2-1.0); Ferritin 85.7 ng/mL (8-388); Glucose Level 310 mg/dL (74-106); Magnesium 2.2 mg/dL (1.8-2.4); Potassium 3.6 mmol/L (3.5-5.1); Protein, Total 7.1 g/dL (6.4-8.2); Sodium Level 135 mmol/L (136-145); Thyroid Stimulating Hormone 0.097 uIU/mL (0.360-3.740)
[2020-08-16] MEDS: ASCORBIC ACID 500 MG TABLET PO SCH ×3 (08:57→16:23)
[2020-08-16] MEDS ORDERED: METOPROLOL XL 100 MG TAB PO SCH (09:00)
[2020-08-16] MEDS ORDERED: ZINC SULFATE 220 MG CAP PO SCH (09:00)
[2020-08-16] MEDS ORDERED: ENOXAPARIN 40 MG/0.4 ML SQ SCH (09:00)
[2020-08-16] MEDS ORDERED: AMLODIPINE 5 MG TAB PO SCH (09:00)
[2020-08-16] MEDS ORDERED: THIAMINE HCL 100 MG TABLET PO SCH (09:00)
[2020-08-16] MEDS ORDERED: VITAMIN D 1000 UNIT TAB PO SCH (09:00)
[2020-08-16] MEDS ORDERED: ASPIRIN EC 81 MG TAB PO SCH (09:00)
[2020-08-16] MEDS ORDERED: AMITRIPTYLINE 25 MG TAB PO SCH (09:00)
[2020-08-16] MEDS ORDERED: METHYLPREDNISOLONE 40 MG INJ IV SCH (09:00)
[2020-08-16 09:21] LABS: Blood Morphology Comment NOT SEEN (NOT SEEN); Platelet Estimate ADEQ; White Blood Cell Scan OK (OK)
[2020-08-16] MEDS ORDERED: POTASSIUM CL SA 10 MEQ TAB PO ONE (11:00)
--- NOTE | 2020-08-16 11:59 | P.CNS ---
Date of Consult: 08/16/20 Chief Complaint: COVID-19 pneumonia History of Present Illness: Patient is 39 years of age developed coal weighed symptoms on vent as they become progressively worse ended up in the hospital complaining of shortness of breath and cough doing a little better oxygenation is satisfactory Allergies Iodinated Contrast Media [Iodinated Contrast Media - IV Dye] Allergy (Verified 09/02/16 10:51) Itching losartan Allergy (Verified 08/16/20 05:55) Nausea/Vomiting Sulfa (Sulfonamide Antibiotics) Allergy (Verified 09/02/16 10:51) Anaphylaxis Home Medications: Acetazolamide [Diamox Sequels] 500 tab PO BID 06/16/14 Amitriptyline HCl 25 mg PO BID 02/16/18 Amlodipine Besylate [Norvasc] 5 mg PO DAILY 05/07/19 Metoprolol Succinate [Toprol Xl] 100 mg PO DAILY 05/07/19 - Past Medical/Surgical History Diabetic: No -: pseudotumor cerebri -: Obesity -: tubal ligation -: x2 Psychosocial/ Personal History: Patient is unemployed, lives with family - Family History Father Medical History: Heart disease, Hypertension, Diabetes Mother Medical History: Hypertension, Diabetes, Other (see notes) Brother Medical History: Other (see notes) Sister Medical History: Other (see notes) - Social History Smoking Status: Never smoker Alcohol use: Yes CD- Drugs: No Caffeine use: Yes Place of Residence: Home Review of Systems General: Weakness Respiratory: Cough, Shortness of Breath Physical Examination Temp Pulse Resp BP Pulse Ox 96.7 F L 97 H 18 113/76 96 08/16/20 08:00 08/16/20 09:00 08/16/20 08:49 08/16/20 09:00 08/16/20 08:00 General: Alert, Oriented x3, Moderate distress Respiratory: Clear to auscultation bilaterally Cardiovascular: No edema Laboratory Data (last 24 hrs) 08/15/20 19:14: PT 13.5 H, INR 1.17 08/15/20 19:14: WBC 3.10 L, Hgb 12.6, Hct 37.8, Plt Count 187 08/15/20 19:14: Sodium 134 L, Potassium 3.0 L, BUN 9, Creatinine 0.76, Glucose 172 H, Magnesium 2.0, Total Bilirubin 0.3, AST 20, ALT 23, Alkaline Phosphatase 76 - Problems (1) Pneumonia due to coronavirus disease 2019 Current Visit: Yes Status: Acute Plan: Patient is 39 years of age admitted with monreal virus pneumonia oxygenation is satisfactory labs reviewed recommend discharge home on prednisone 20 mg twice a day for at least a week phone Consul with me next week as not currently qualify for oxygen pt to monitor her sat to call my office if it drops below 90% and may need home O2 ivermectin at discharge
[2020-08-16] MEDS ORDERED: IVERMECTIN 3 MG TABLET PO SCH (14:00)
[2020-08-16 16:27] VITALS: BP 105/65; TEMP 96.9
[2020-08-16 16:43] VITALS: O2SAT 96
[2020-08-16] MEDS ORDERED: INFLUENZA VACCINE (for 3y+) 0.5 ML DOSE IMVAC ONE (17:00)
--- NOTE | 2020-08-16 21:53 | P.DS ---
Admission Date: 08/15/20 Discharge Date: 08/16/20 Disposition: ROUTINE DISCHARGE Discharge Condition: FAIR Reason for Admission: COVID-19 pneumonia Consultations: Pulm - Dr. Mabry Procedures: CXR (08/15): Mild bilateral pulmonary opacities are present, greater the left. This likely represents viral infection. The heart is upper limit of normal in size. No displaced fractures. Problem List: Dyspnea, hypoxia secondary to bilateral COVID pneumonia Pseudotumor cerebri, hypertension Brief History of Present Illness: 39-year-old female with history of pseudotumor story right, hypertension presents emergency department for shortness of breath. Patient reports testing positive for Delgado virus on 08/14/2020 but reports symptoms since 08/12/2020. Patient evaluated in the emergency department labs significant for glucose 172 potassium 3.0 sodium 134 C. reactive protein 82.1. Chest x-ray suggest mild bilateral opacities, patient oxygen saturations at rest around 91-92 percent but with ambulation dips into the 80s. ED provider wishes to admit for Delgado virus infection. Hospital Course: Patient was treated with IV steroids, Ivermectin, Aspirin, and vitamin supplementation. Her resting and ambulatory SpO2 were checked and she did not drop below 90%. She was feeling better and requested to be discharged home. She was discharged with prescriptions for high-dose steroids, vitamins, and aspirin. She is to follow up with Dr. Mabry in 1 week. She was advised to check her oxygen saturations at home and if they drop <90% to contact Dr. Mabry who would be able to order home O2. Vital Signs/Physical Exam: Physical Exam General: Alert, In no apparent distress, Oriented x3, Obese HEENT: Atraumatic, PERRLA Neck: Supple, 2+ carotid pulse no bruit, No LAD Respiratory: Normal air movement, Diminished (Bilaterally) Cardiovascular: Regular rate/rhythm, Normal S1 S2 Gastrointestinal: Normal bowel sounds, No tenderness Musculoskeletal: No tenderness Integumentary: No rashes Temp Pulse Resp BP Pulse Ox 96.9 F 80 18 105/65 96 08/16/20 16:00 08/16/20 16:00 08/16/20 16:00 08/16/20 16:00 08/16/20 16:00 Laboratory Data at Discharge: WBC 2.40 K/uL (4.3-10.9) L D 08/16/20 06:31 Hgb 11.9 g/dL (12.0-15.0) L 08/16/20 06:31 Hct 36.2 % (36.0-45.0) 08/16/20 06:31 Plt Count 177 K/uL (152-406) 08/16/20 06:31 PT 13.5 SECONDS (9.5-12.5) H 08/15/20 19:14 INR 1.17 08/15/20 19:14 Sodium 135 mmol/L (136-145) L 08/16/20 06:31 Potassium 3.6 mmol/L (3.5-5.1) 08/16/20 06:31 BUN 9 mg/dL (7-18) 08/16/20 06:31 Creatinine 0.64 mg/dL (0.55-1.3) 08/16/20 06:31 Glucose 310 mg/dL (74-106) H 08/16/20 06:31 Magnesium 2.2 mg/dL (1.8-2.4) 08/16/20 06:31 Total Bilirubin 0.2 mg/dL (0.2-1.0) 08/16/20 06:31 AST 15 U/L (15-37) 08/16/20 06:31 ALT 21 U/L (12-78) 08/16/20 06:31 Alkaline Phosphatase 71 U/L (45-117) 08/16/20 06:31 Home Medications: RX: Acetazolamide [Diamox Sequels] 500 tab PO BID 06/16/14 RX: Amitriptyline HCl 25 mg PO BID 02/16/18 RX: Amlodipine Besylate [Norvasc] 5 mg PO DAILY 05/07/19 RX: Metoprolol Succinate [Toprol Xl] 100 mg PO DAILY 05/07/19 Aspirin [Aspirin EC 325 MG] 325 mg PO DAILY #30 tablet 08/16/20 Ondansetron [Zofran] 4 mg PO Q6H PRN #15 tab 08/16/20 RX: Ascorbic Acid [Vitamin C*] 500 mg PO QID tablet 08/16/20 RX: Benzonatate [Tessalon Perle*] 100 mg PO TID PRN #20 cap 08/16/20 RX: Cholecalciferol (Vitamin D3) [Vitamin D 1000 Iu Tab*] 4,000 unit PO DAILY tab 08/16/20 RX: Ivermectin 18 mg PO ONCE 1 Days #6 tablet 08/16/20 RX: Thiamine HCl [Vitamin B-1*] 200 mg PO DAILY tablet 08/16/20 RX: Zinc Sulfate [Zinc Sulfate*] 220 mg PO DAILY cap 08/16/20 predniSONE [Prednisone] 20 mg PO BID 10 Days #20 tablet 08/16/20 New Medications: Aspirin [Aspirin EC 325 MG] 325 mg PO DAILY #30 tablet.dr RX: Ivermectin 18 mg PO ONCE 1 Days #6 tablet predniSONE [Prednisone] 20 mg PO BID 10 Days #20 tablet RX: Benzonatate [Tessalon Perle*] 100 mg PO TID PRN #20 cap PRN Reason: Cough Ondansetron [Zofran] 4 mg PO Q6H PRN #15 tab PRN Reason: Nausea / Vomiting Physician Discharge Instructions: You have COVID-19 pneumonia. You are discharged with steroids, aspirin, and nausea medication. If your oxygen level drops <88%, please call Dr. Mabry's office to set up Oxygen at home. If unable to get a hold of his office or getting much worse, please return to the ER. Diet: ADA Activity: Ad nacho Followup: Everett Mabry MD [ACTIVE - CAN ADMIT] - Wendy Haji MD [Primary Care Provider] - Time spent managing pt's care (in minutes): 45
[2020-08-17] MEDS ORDERED: IVERMECTIN 3 MG TABLET PO SCH (09:00)
== END 2020-08-16 16:20 | disposition home or self-care (01) | DRG 177 ==
LOC: ER 18:29 → 4TH 23:39
PROVIDERS: ADMIT Hospitalist; ATTEND Hospitalist
DX: U07.1 COVID-19 (principal); J12.82 Pneumonia due to coronavirus disease 2019; Z68.42 Body mass index [BMI] 45.0-49.9, adult; E66.9 Obesity, unspecified; G93.2 Benign intracranial hypertension; R09.02 Hypoxemia; Z88.1 Allergy status to other antibiotic agents; Z88.8 Allergy status to other drugs, medicaments and biological substances; Z91.041 Radiographic dye allergy status; Z98.51 Tubal ligation status; Z56.0 Unemployment, unspecified; Z79.82 Long term (current) use of aspirin; Z79.52 Long term (current) use of systemic steroids; Z79.899 Other long term (current) drug therapy
CPT/HCPCS: 36415; 71045; 80048; 80053; 80076; 81003; 82728; 83735; 83880; 84439; 84443; 84484; 85025; 85379; 85610; 86140; 93005; 96361; 96374; 96375; 99285; J1650; J2405; J2920; J2930; J7030; J7040

== ENCOUNTER 2020-08-18 12:13 | Inpatient (IN) | payer OTHER ==
--- OUTSIDE RECORDS SUMMARY | 2020-08-18 12:15 | XMS REPORT | Continuity of Care Document ---
:1980 Author Organization [facility] t Address [address] [place] [address] [address] [place] [address] Care Team Providers Name Role Phone Asked, Pcp Primary Care Physician Unavailable Lab, Fam Pob I Attending Clinician Unavailable Doctor Unassigned, Name Attending Clinician Unavailable Problems Condition Condition Condition Status Onset Resolution Last Treating Co mments Source Name Details Category Date Date Treatment Clinician Date Kidney Kidney Disease Active [facility] 02-13 [facility] 00:00: st 00 Allergies, Adverse Reactions, Alerts Allergy Allergy Status Severity Reaction(s) Onset Inactive Treating Comm ents Source Name Type Date Date Clinician Iodine Propensi Active Shortness Of Injectabl [facility] And ty to Breath 02-13 e dye Methodi Iodide adverse 00:00: st Containi reaction 00 ng s to Products drug Sulfa Propensi Active Rash [facility] (Sulfona ty to 02-13 Methodi mide adverse 00:00: st Antibiot reaction 00 ics) s to drug Family History Family Member Diagnosis Comments Start Date Stop Date Source Natural mother Heart disease [facility] Natural mother Hypertension [facility] Natural mother Diabetes [facility] Natural sister Diabetes [facility] Natural brother Urolithiasis [facility] Natural father Diabetes [facility] Natural father Heart disease [facility] Natural father Hypertension [facility] Social History Social Habit Start Date Stop Date Quantity Comments Source Alcohol intake 2017-02-13 2017-02-13 Current drinker [place] [facility] 00:00:00 00:00:00 of alcohol (finding) Alcohol Comment 2017-02-13 2017-02-13 rarely -last [facility] 00:00:00 00:00:00 weks ago Sex Ass[birth year] At [birth year] Jose Elias Cruz ethodist 00:00:00 00:00:00 Smoking Status Start Date Stop Date Source Never smoker Jose Elias Hubbard t Medications Ordered Filled Start Stop Current Ordering Indication Dosage Frequency Signature Comments Components Source Medication Medication Date Date Medication? Clinician (SIG) Name Name acetaZOLAMI Yes 500mg Q.5D Take 500 [place] (DIAMOX) 9-19 mg by Methodi 500 mg 15:22: mouth 2 st capsule 57 (two) times a day. topiramate Yes 25mg Q.5D Take 25 mg [place] (TOPAMAX) 9-19 by mouth 2 Meth [place] 25 MG 15:22: (two) st tablet 57 times a day. losartan 2017- Yes 50mg QD Take 50 mg Jakub ston (COZAAR) 50 9-19 by mouth Meth [place] MG tablet 15:22: daily. st 57 Procedures This patient has no known procedures. Plan of Care Planned Activity Planned Date Details Comments Source Future Scheduled 2019-12-28 INFLUENZA VACCINE [place] [facility] Test 00:00:00 [code = INFLUENZA VACCINE] Future Scheduled 2001 Screening for [facility] thodist Test 00:00:00 malignant neoplasm of cervix (procedure) [code = 334495521] Future Scheduled 1996 COVID-19 VACCINE (1 [place] [employer] Test 00:00:00 of 2) [code = COVID-19 VACCINE (1 of 2)] Encounters Start End Encounter Admission Attending Care Care Encounter Source Date/Time Date/Time Type Type Clinicians Facility Department ID 2020-08-13 2020-08-13 Laboratory Lab, Adc [facility] [id number] 16:46:49 17:06:49 Only Fam Pob I Health [id number] [place] [id number] Professio [phone] nal [address] 2020-08-13 2020-08-13 Letter Doctor EDIE [id number] 00:00:00 00:00:00 (Out) Unassigned, [place] [id number] [place] [facility] [phone] [id number] Results This patient has no known results.
[2020-08-18] MEDS ORDERED: METHYLPREDNISOLONE 125 MG INJ ONE (16:21)
[2020-08-18] MEDS ORDERED: ACETAMINOPHEN 500 MG TAB ONE (16:21)
[2020-08-18 16:23] LABS: Absolute Lymphocytes (CBC) 0.6 K/uL (0.7-4.9); Basophils % 0.1 % (0-1.3); Hematocrit 36.2 % (36.0-45.0); Lymphocytes % 6.1 % (15.3-44.8); MPV 8.6 fL (7.6-11.3); RBC Red Blood Cell Count 4.54 M/uL (3.86-4.86)
[2020-08-18 16:52] LABS: Blood Morphology Comment NOT SEEN (NOT SEEN); Platelet Estimate ADEQ; White Blood Cell Scan OK (OK)
--- NOTE | 2020-08-18 16:58 | EDPHYS ---
Physician Documentation [facility] Name: Melba Centeno Age: 39 yrs Sex: Female : 1980 Arrival Date: 08/18/2020 Time: 12:15 Bed 13 Private MD: Wendy Haji K ED Physician Richy Nevarez HPI: 08/18 15:52 This 39 yrs old Female presents to ER via Ambulatory with complaints of rn COVID+, Shortness Of Breath. 15:52 The patient or guardian reports chest pain that is located primarily in the substernal rn area. The pain does not radiate. Associated signs and symptoms: Pertinent positives: cough, shortness of breath, Pertinent negatives: abdominal pain, headache, syncope. The chest pain is described as aching. Duration: The patient or guardian reports multiple episodes, that are intermittent. Modifying factors: The symptoms are alleviated by nothing. the symptoms are aggravated by exertion. Severity of pain: At its worst the pain was moderate in the emergency department the pain is unchanged. The patient has not experienced similar symptoms in the past. The patient has been recently seen by a physician:. Reports diagnosed with COVID last week, spent the night in hospital, states did not require oxygen, now returns for increased sob, no hemoptysis. Reports still taking steroids. . Historical: - Allergies: 12:23 Losartan; ll1 12:23 Sulfa (Sulfonamide Antibiotics); ll1 12:23 Iodinated Contrast Media - IV Dye; ll1 - PMHx: 12:23 intracranial hypertension; ll1 - PSHx: 12:23 ; shunt; ll1 - Immunization history:: Flu vaccine is not up to date. - Social history:: Smoking status: Patient denies any tobacco usage or history of. - Family history:: not pertinent. - Hospitalizations: : No recent hospitalization is reported. ROS: 15:52 Constitutional: Negative for fever, chills, and weight loss, Eyes: Negative for injury, rn pain, redness, and discharge, ENT: Negative for injury, pain, and discharge, Cardiovascular: Negative for palpitations, and edema, Respiratory: + cough and sob Abdomen/GI: Negative for abdominal pain, nausea, vomiting, diarrhea, and constipation, MS/Extremity: Negative for injury and deformity, Skin: Negative for injury, rash, and discoloration, Neuro: Negative for headache, numbness, tingling, and seizure. Exam: 15:52 Constitutional: Overweight female, mild tachypnea Head/Face: Normocephalic, rn atraumatic. Eyes: Periorbital areas with no swelling, redness, or edema. ENT: No stridor Cardiovascular: Regular rate and rhythm. No pulse deficits. Respiratory: + mild tachypnea, no retractions Skin: Warm, dry MS/ Extremity: NO cyanosis Neuro: Awake and alert, GCS 15 Vital Signs: 12:20 BP 105 / 71; Pulse 104; Resp 26; Temp 99.9; Pulse Ox 93% on R/A; Weight 104.33 kg; ll1 Height 4 ft. 11 in. (149.86 cm); Pain 6/10; 12:24 Resp 24; Pulse Ox 95% on 2 lpm NC; hb 15:59 BP 98 / 67; Pulse 94; Resp 26; Pulse Ox 92% on 3 lpm NC; vg1 16:16 BP 101 / 75; Pulse 72; Resp 24; Pulse Ox 94% on 3 lpm NC; vg1 17:22 Temp 98.5; vg1 17:24 BP 102 / 72; Pulse 88; Resp 91; Pulse Ox 86% on 4 lpm NC; vg1 18:00 BP 101 / 80; Pulse 90; Resp 24; Pulse Ox 92% on 4 lpm NC; vg1 19:00 BP 108 / 80; Pulse 84; Resp 22; Pulse Ox 93% on 4 lpm NC; vg1 20:00 BP 110 / 95; Pulse 90; Resp 24; Pulse Ox 92% on 4 lpm NC; vg1 12:20 Body Mass Index 46.45 (104.33 kg, 149.86 cm) ll1 MDM: 15:43 Patient medically screened. rn 16:54 Differential diagnosis: pleurisy, pneumonia, pneumothorax, COVID pneumonia. Data rn reviewed: vital signs, nurses notes, lab test result(s), radiologic studies, plain films, and as a result, I will admit patient. Counseling: I had a detailed discussion with the patient and/or guardian regarding: the historical points, exam findings, and any diagnostic results supporting the discharge/admit diagnosis, lab results, radiology results, the need for further work-up and treatment in the hospital. Admission orders: after a detailed discussion of the patient's condition and case, the admit orders are written by me. ED course: Pt with failure outpt therapy, getting worse, CXR significantly worse and now requiring oxygen, will admit to Dr. Maya for further treatment. . 08/18 15:51 Order name: CBC with Diff rn 08/18 15:51 Order name: Basic Metabolic Panel; Complete Time: 17:30 rn 08/18 15:51 Order name: Ferritin; Complete Time: 17:30 rn 08/18 15:51 Order name: CRP; Complete Time: 17:30 rn 08/18 15:51 Order name: Procalcitonin; Complete Time: 17:30 rn 08/18 16:52 Order name: CBC Smear Scan EDMS 08/18 15:51 Order name: IV Start; Complete Time: 16:21 rn 08/18 15:51 Order name: XRAY Chest (1 view); Complete Time: 17:30 rn 08/18 17:52 Order name: CONS Physician Consult EDMS Administered Medications: 16:15 Drug: Tylenol 1000 mg Route: PO; vg1 17:22 Follow up: Temp 98.5; Response: Temperature is decreased vg1 16:16 Drug: SOLU-Medrol 125 mg Route: IVP; Site: right antecubital; vg1 17:22 Follow up: Response: No adverse reaction vg1 Disposition: 08/18/20 16:56 Hospitalization ordered by Etienne Maya for Inpatient Admission. Preliminary diagnosis are Pneumonia, unspecified organism - Bilateral, Coronavirus infection, unspecified, Hypoxemia. - Bed requested for Telemetry/MedSurg (Inpatient). - Status is Inpatient Admission. vg1 - Condition is Stable. - Problem is an ongoing problem. - Symptoms have worsened. Signatures: Dispatcher [employer] EDMS Freya Alex Roman, MD MD rn Aguilar, Jose, RN RN ja1 Gay Walsh RN RN vg1 Robert Shea RN RN ll1 Corrections: (The following items were deleted from the chart) 16:00 15:52 Constitutional: Negative for fever, chills, and weight loss, Cardiovascular: rn Negative for palpitations, and edema, Respiratory: + cough and sob Abdomen/GI: Negative for abdominal pain, nausea, vomiting, diarrhea, and constipation, MS/Extremity: Negative for injury and deformity, Skin: Negative for injury, rash, and discoloration, Neuro: Negative for headache, numbness, tingling, and seizure, rn 18:12 16:56 Hospitalization Ordered by Etienne Maya for Inpatient Admission. Preliminary [facility] diagnosis is Pneumonia, unspecified organism - Bilateral; Coronavirus infection, unspecified; Hypoxemia. Bed requested for Telemetry/MedSurg (Inpatient). Status is Inpatient Admission. Condition is Stable. Problem is an ongoing problem. Symptoms have worsened. rn 18:42 18:12 08/18/2020 16:56 Hospitalization Ordered by Etienne Maya for Inpatient bd Admission. Preliminary diagnosis is Pneumonia, unspecified organism - Bilateral; Coronavirus infection, unspecified; Hypoxemia. Bed requested for [facility] ER HOLD. Status is Inpatient Admission. Condition is Stable. Problem is an ongoing problem. Symptoms have worsened. 1 20:38 18:42 08/18/2020 16:56 Hospitalization Ordered by Etienne Maya for Inpatient vg1 Admission. Preliminary diagnosis is Pneumonia, unspecified organism - Bilateral; Coronavirus infection, unspecified; Hypoxemia. Bed requested for Telemetry/MedSurg (Inpatient). Status is Inpatient Admission. Condition is Stable. Problem is an ongoing problem. Symptoms have worsened. bd
--- NOTE | 2020-08-18 16:58 | ER ---
Nurse's Notes [facility] Name: Melba Centeno Age: 39 yrs Sex: Female : 1980 Arrival Date: 08/18/2020 Time: 12:15 Bed 13 Private MD: Wendy Haji K Diagnosis: Pneumonia, unspecified organism-Bilateral;Coronavirus infection, unspecified;Hypoxemia Presentation: 08/18 12:20 Chief complaint: Patient states: SOB continues since last visit here. Worse with ll1 walking. + fever at home 103. + diarrhea. Coronavirus screen: Client denies travel out of the [place] in the last 14 days. chills, cough unrelated to allergies, diarrhea, difficulty breathing, fatigue, fever, headache, muscle pain, shaking with chills, shortness of breath, loss of taste or smell, Client presents with at least one sign or symptom that may indicate coronavirus-19. Standard/surgical mask placed on the client. Ebola Screen: Patient denies travel to an Ebola-affected area in the 21 days before illness onset. Initial Sepsis Screen: Does the patient meet any 2 criteria? HR > 90 bpm. No. Patient's initial sepsis screen is negative. Does the patient have a suspected source of infection? Yes: Productive cough/pneumonia. Risk Assessment: Do you want to hurt yourself or someone else? Patient reports no desire to harm self or others. Onset of symptoms was August 12, 2020. 12:20 Method Of Arrival: Ambulatory ll1 12:20 Acuity: TAHIR 3 ll1 Historical: - Allergies: 12:23 Losartan; ll1 12:23 Sulfa (Sulfonamide Antibiotics); ll1 12:23 Iodinated Contrast Media - IV Dye; ll1 - PMHx: 12:23 intracranial hypertension; ll1 - PSHx: 12:23 ; shunt; ll1 - Immunization history:: Flu vaccine is not up to date. - Social history:: Smoking status: Patient denies any tobacco usage or history of. - Family history:: not pertinent. - Hospitalizations: : No recent hospitalization is reported. Screenin:55 Abuse screen: Denies threats or abuse. Nutritional screening: No deficits noted. tw2 Tuberculosis screening: No symptoms or risk factors identified. Fall Risk None identified. Assessment: 15:57 General: Appears in no apparent distress. uncomfortable, Behavior is calm, cooperative. vg1 Pain: Denies pain. Complains of pain in anterior aspect of left upper chest Pain does not radiate. Neuro: Level of Consciousness is awake, alert, obeys commands, Oriented to person, place, time, situation. Cardiovascular: Patient's skin is warm and dry. Respiratory: Reports shortness of breath cough that is pain with respiration Airway is patent Respiratory effort is even, labored, Respiratory pattern is regular, symmetrical. GI: Reports diarrhea. : No signs and/or symptoms were reported regarding the genitourinary system. EENT: No signs and/or symptoms were reported regarding the EENT system. Derm: Skin is intact, is healthy with good turgor. Musculoskeletal: Circulation, motion, and sensation intact. 17:24 Reassessment: Patient appears in no apparent distress at this time. No changes from vg1 previously documented assessment. Patient and/or family updated on plan of care and expected duration. Pain level reassessed. Patient is alert, oriented x 3, equal unlabored respirations, skin warm/dry/pink. 18:30 Reassessment: Patient appears in no apparent distress at this time. No changes from vg1 previously documented assessment. Patient and/or family updated on plan of care and expected duration. Pain level reassessed. Patient is alert, oriented x 3, equal unlabored respirations, skin warm/dry/pink. 20:10 Reassessment: Patient appears in no apparent distress at this time. No changes from vg1 previously documented assessment. Patient and/or family updated on plan of care and expected duration. Pain level reassessed. Patient is alert, oriented x 3, equal unlabored respirations, skin warm/dry/pink. Vital Signs: 12:20 BP 105 / 71; Pulse 104; Resp 26; Temp 99.9; Pulse Ox 93% on R/A; Weight 104.33 kg; ll1 Height 4 ft. 11 in. (149.86 cm); Pain 6/10; 12:24 Resp 24; Pulse Ox 95% on 2 lpm NC; hb 15:59 BP 98 / 67; Pulse 94; Resp 26; Pulse Ox 92% on 3 lpm NC; vg1 16:16 BP 101 / 75; Pulse 72; Resp 24; Pulse Ox 94% on 3 lpm NC; vg1 17:22 Temp 98.5; vg1 17:24 BP 102 / 72; Pulse 88; Resp 91; Pulse Ox 86% on 4 lpm NC; vg1 18:00 BP 101 / 80; Pulse 90; Resp 24; Pulse Ox 92% on 4 lpm NC; vg1 19:00 BP 108 / 80; Pulse 84; Resp 22; Pulse Ox 93% on 4 lpm NC; vg1 20:00 BP 110 / 95; Pulse 90; Resp 24; Pulse Ox 92% on 4 lpm NC; vg1 12:20 Body Mass Index 46.45 (104.33 kg, 149.86 cm) ll1 ED Course: 12:15 Patient arrived in ED. mr 12:16 Wendy Haji MD is Private Physician. mr 12:23 Triage completed. ll1 12:23 Arm band placed on. ll1 15:43 Richy Nevarez MD is Attending Physician. rn 15:43 Bed in low position. Call light in reach. site monitor on. Pulse ox on. NIBP on. tw2 15:46 Gay Walsh, RN is Primary Nurse. vg1 16:00 Oxygen administration via nasal cannula \T\ 3L/min. vg1 16:16 Initial lab(s) drawn, by md, sent to lab. Inserted saline lock: 20 gauge in right vg1 antecubital area, using aseptic technique. Blood collected. 16:21 XRAY Chest (1 view) In Process Unspecified. [facility] 16:56 Etienne Maya is Hospitalizing Provider. rn 20:16 No provider procedures requiring assistance completed. Patient admitted, IV remains in vg1 place. Administered Medications: 16:15 Drug: Tylenol 1000 mg Route: PO; vg1 17:22 Follow up: Temp 98.5; Response: Temperature is decreased vg1 16:16 Drug: SOLU-Medrol 125 mg Route: IVP; Site: right antecubital; vg1 17:22 Follow up: Response: No adverse reaction vg1 Outcome: 16:56 Decision to Hospitalize by Provider. rn 20:16 Admitted to Med/surg accompanied by tech, via wheelchair, room 412, with oxygen, with vg1 chart, Report called to BRIGETTE Mccauley 20:16 Condition: unchanged 20:16 Instructed on the need for admit. 20:38 Patient left the ED. vg1 Signatures: Dispatcher [employer] EDVT Nancy Hernandez mr Roque, MD FLORES Lockhart rn Javid, Tasha, RN RN hb Mariann Smith, RN RN tw2 Gay Walsh, RN RN vg1 Robert Shea RN RN ll1
[2020-08-18 17:07] LABS: Ferritin 115.5 ng/mL (8-388)
--- NOTE | 2020-08-18 17:26 | RAD REPORT ---
EXAM DESCRIPTION: RAD - Chest Single View - 08/18/2020 4:21 pm CLINICAL HISTORY: Cough;Dyspnea Chest pain. COMPARISON: Chest Single View dated 08/15/2020; CHEST PA AND LAT 2 VIEW dated 01/26/2011 FINDINGS: Portable technique limits examination quality. Moderate bilateral pulmonary opacities are seen, moderately progressive since the comparative study. This is likely related to infection. The heart is upper limit normal in size. No displaced fractures. IMPRESSION: Moderate worsening in bilateral pulmonary opacities since comparative study.
--- NOTE | 2020-08-18 18:02 | P.HP ---
Certification for Inpatient Patient admitted to: Inpatient With expected LOS: >2 Midnights Practitioner: I am a practitioner with admitting privileges, knowledge of patient current condition, hospital course, and medical plan of care. Services: Services provided to patient in accordance with Admission requirements found in Title 42 Section 412.3 of the Code of Federal Regulations Patient History Date of Service: 08/18/20 Reason for admission: Shortness of breath History of Present Illness: 39 year old obese woman with a history of pseudotumor cerebri, diagnosed with COVID 19 infection on 08/12/2020, hospitalized a few days ago and discharged to home without oxygen with a prescription for oral prednisone returned to the ED today for increasing shortness of breath. Patient was seen by Dr. Mabry at home and noted to be hypoxic on room air with oxygen saturation in the 80s. Dr. Mabry recommended the patient comes back to the emergency department for hospitalization. She was requiring 2-4 L of oxygen by nasal cannula to keep her oxygen saturation above 90%. Chest x-ray showed worsening bilateral infiltrates. Patient is hospitalized for further management. Allergies Iodinated Contrast Media [Iodinated Contrast Media - IV Dye] Allergy (Verified 09/02/16 10:51) Itching losartan Allergy (Verified 08/16/20 05:55) Nausea/Vomiting Sulfa (Sulfonamide Antibiotics) Allergy (Verified 09/02/16 10:51) Anaphylaxis Home Medications: Acetazolamide [Diamox Sequels] 500 tab PO BID 06/16/14 Amitriptyline HCl 25 mg PO BID 02/16/18 Amlodipine Besylate [Norvasc] 5 mg PO DAILY 05/07/19 Metoprolol Succinate [Toprol Xl] 100 mg PO DAILY 05/07/19 Ascorbic Acid [Vitamin C*] 500 mg PO QID tablet 08/16/20 Aspirin [Aspirin EC 325 MG] 325 mg PO DAILY #30 tablet. 08/16/20 Benzonatate [Tessalon Perle*] 100 mg PO TID PRN #20 cap 08/16/20 Cholecalciferol (Vitamin D3) [Vitamin D 1000 Iu Tab*] 4,000 unit PO DAILY tab 08/16/20 Ivermectin 18 mg PO ONCE 1 Days #6 tablet 08/16/20 Ondansetron [Zofran] 4 mg PO Q6H PRN #15 tab 08/16/20 Thiamine HCl [Vitamin B-1*] 200 mg PO DAILY tablet 08/16/20 Zinc Sulfate [Zinc Sulfate*] 220 mg PO DAILY cap 08/16/20 predniSONE [Prednisone] 20 mg PO BID 10 Days #20 tablet 08/16/20 - Past Medical/Surgical History Diabetic: No -: pseudotumor cerebri -: Obesity -: tubal ligation -: x2 Psychosocial/ Personal History: Patient is unemployed, lives with family - Family History Father -: Heart disease, Hypertension, Diabetes Mother -: Hypertension, Diabetes, Other (see notes) Brother -: Other (see notes) Sister -: Other (see notes) - Social History Alcohol use: Yes CD- Drugs: No Caffeine use: Yes Review of Systems Other: Except as documented, all other systems reviewed and negative. Physical Examination - Physical Exam General: Alert, In no apparent distress, Oriented x3 HEENT: Mucous membr. moist/pink, Other (Oxygen by nasal cannula) Neck: JVD not distended Respiratory: Normal air movement, Crackles/rales (Bibasilar) Cardiovascular: No edema, Regular rate/rhythm, Normal S1 S2 Gastrointestinal: Soft and benign, Non-distended, No tenderness Musculoskeletal: No swelling, No tenderness Integumentary: No rashes, No erythema Neurological: Normal strength at 5/5 x4 extr, Cranial nerves 3-12 intact - Studies Laboratory Data (last 24 hrs) 08/18/20 16:11: Sodium 137, Potassium 3.0 L, BUN 14, Creatinine 0.83, Glucose 267 H 08/18/20 16:11: WBC 10.60 D, Hgb 12.1, Hct 36.2, Plt Count 262 D Assessment and Plan - Problems (Diagnosis) (1) Acute respiratory failure with hypoxia Current Visit: Yes Status: Acute (2) Pseudotumor cerebri Current Visit: Yes Status: Acute (3) Pneumonia due to coronavirus disease 2019 Current Visit: No Status: Acute (4) Obesity Current Visit: No Status: Chronic - Plan Admit to the medical floor. Start IV Solu-Medrol, vitamins supplementation, zinc supplementation. Pharmacy to evaluate for Remdesivir therapy. Titrate oxygen Consult to pulmonary Monitor blood sugar and watch for steroid induced hyperglycemia. Insulin sliding scale as needed. - Advance Directives Does patient have a Living Will: No Does patient have a Durable POA for Healthcare: No
[2020-08-18] MEDS ORDERED: ACETAMINOPHEN 500 MG TAB PO PRN (21:09)
[2020-08-18] MEDS ORDERED: ONDANSETRON 4 MG/2 ML VIAL IV PRN (21:09)
[2020-08-18] MEDS ORDERED: POTASSIUM CL SA 10 MEQ TAB PO ONE (21:48)
[2020-08-18 22:17] VITALS: BMI 45.1
[2020-08-18] MEDS: METHYLPREDNISOLONE 40 MG INJ IV SCH (22:17)
[2020-08-18] MEDS: FAMOTIDINE 20 MG/2 ML VIAL IV SCH (22:18)
[2020-08-18] MEDS: APIXABAN 2.5 MG TABLET PO SCH (22:18)
[2020-08-18] MEDS ORDERED: GLUCAGON 1 MG/VIAL IM PRN (23:25)
[2020-08-18] MEDS ORDERED: D50W 25 GM/50 ML SYRINGE IV PRN (23:25)
[2020-08-19] MEDS: INSULIN -REGULAR HUMAN 50 UNIT/0.5 ML ML SQ SCH ×5 (00:45→20:08)
[2020-08-19 04:22] LABS: Absolute Lymphocytes (CBC) 0.4 K/uL (0.7-4.9); Basophils % 0.1 % (0-1.3); Hematocrit 38.1 % (36.0-45.0); Lymphocytes % 5.4 % (15.3-44.8); MPV 9.6 fL (7.6-11.3); RBC Red Blood Cell Count 4.72 M/uL (3.86-4.86)
[2020-08-19 04:40] LABS: Albumin 2.5 g/dL (3.4-5.0); Bilirubin Total 0.3 mg/dL (0.2-1.0); Ferritin 128.1 ng/mL (8-388); Magnesium 2.7 mg/dL (1.8-2.4); Phosphorus 2.3 mg/dL (2.5-4.9); Potassium 3.6 mmol/L (3.5-5.1); Protein, Total 7.9 g/dL (6.4-8.2)
[2020-08-19] MEDS: acetaZOLAMIDE 250 MG TAB PO SCH ×2 (08:28→20:08)
[2020-08-19] MEDS: APIXABAN 2.5 MG TABLET PO SCH ×2 (08:28→20:08)
[2020-08-19] MEDS: POTASS/SODIUM PHOSPHATE 1 PKT POWD.PACK PO SCH ×3 (08:29→10:27)
[2020-08-19] MEDS: FAMOTIDINE 20 MG/2 ML VIAL IV SCH ×2 (08:29→20:08)
[2020-08-19] MEDS: METHYLPREDNISOLONE 40 MG INJ IV SCH ×2 (08:29→20:08)
[2020-08-19] MEDS ORDERED: INFLUENZA VACCINE (for 3y+) 0.5 ML DOSE IMVAC ONE (09:00)
[2020-08-19] MEDS ORDERED: POTASSIUM CL SA 10 MEQ TAB PO ONE (09:00)
--- NOTE | 2020-08-19 12:27 | P.CNS ---
Date of Consult: 08/19/20 Reason for Consult: Coronavirus pneumonia Chief Complaint: Shortness of breath History of Present Illness: Patient is 39 years of age diagnosed with coronavirus infection on August 12 was hospitalized discharge she went home without oxygen and steroids patient complained that she was very short of breath came back here to the emergency room saturations satisfactory She is a little apprehensive Allergies Iodinated Contrast Media [Iodinated Contrast Media - IV Dye] Allergy (Verified 08/18/20 23:07) Itching losartan Allergy (Verified 08/18/20 23:07) Nausea/Vomiting Sulfa (Sulfonamide Antibiotics) Allergy (Verified 08/18/20 23:07) Anaphylaxis Home Medications: Acetazolamide [Diamox Sequels] 500 tab PO BID 06/16/14 Amitriptyline HCl 25 mg PO BID 02/16/18 Amlodipine Besylate [Norvasc] 5 mg PO DAILY 05/07/19 Metoprolol Succinate [Toprol Xl] 100 mg PO DAILY 05/07/19 Ascorbic Acid [Vitamin C*] 500 mg PO QID tablet 08/16/20 Aspirin [Aspirin EC 325 MG] 325 mg PO DAILY #30 tablet.dr 08/16/20 Benzonatate [Tessalon Perle*] 100 mg PO TID PRN #20 cap 08/16/20 Cholecalciferol (Vitamin D3) [Vitamin D 1000 Iu Tab*] 4,000 unit PO DAILY tab 08/16/20 Ondansetron [Zofran] 4 mg PO Q6H PRN #15 tab 08/16/20 Thiamine HCl [Vitamin B-1*] 200 mg PO DAILY tablet 08/16/20 predniSONE [Prednisone] 20 mg PO BID 10 Days #20 tablet 08/16/20 Zinc Sulfate [Zinc Sulfate*] 200 mg PO DAILY 08/18/20 - Past Medical/Surgical History Diabetic: No -: pseudotumor cerebri -: Obesity -: htn -: shunt -: tubal ligation -: x2 Psychosocial/ Personal History: Patient is unemployed, lives with family - Family History Father Medical History: Heart disease, Hypertension, Diabetes Mother Medical History: Hypertension, Diabetes, Other (see notes) Brother Medical History: Other (see notes) Sister Medical History: Other (see notes) - Social History Smoking Status: Never smoker Alcohol use: Yes CD- Drugs: No Caffeine use: Yes Place of Residence: Home Review of Systems General: Weakness Respiratory: Shortness of Breath Physical Examination Temp Pulse Resp BP Pulse Ox 97.9 F 110 H 28 H 110/64 92 08/19/20 08:00 08/19/20 08:00 08/19/20 08:00 08/19/20 08:00 08/19/20 08:00 General: Alert, Oriented x3, Mild distress Respiratory: Clear to auscultation bilaterally, Diminished Laboratory Data (last 24 hrs) 08/18/20 16:11: Sodium 137, Potassium 3.0 L, BUN 14, Creatinine 0.83, Glucose 267 H 08/18/20 16:11: WBC 10.60 D, Hgb 12.1, Hct 36.2, Plt Count 262 D - Problems (1) Pneumonia due to coronavirus disease 2019 Current Visit: No Status: Acute Plan: Patient is 39 years of age recurrent hospital admission due to coronavirus she was here for a couple of days discharge came back again she needs oxygen chest x-ray shows bilateral changes saturations satisfactory continue to monitor. Remdesmir chest x-ray shows diffuse interstitial changes there is worsening on the chest x-ray
[2020-08-19] MEDS ORDERED: Remdesivir 200 MG in NA CHLORIDE 0.9% 250 ML IV ONE (13:00)
--- NOTE | 2020-08-19 19:14 | P.PN ---
Subjective Date of Service: 08/19/20 Chief Complaint: Shortness of breath Patient tolerating 4 L of oxygen by nasal cannula. She has no other complain. Physical Examination - Vital Signs Temperature: 97.4 F Blood Pressure: 101/62 Pulse: 97 Respirations: 26 Pulse Ox (%): 90 - Physical Exam General: Alert, In no apparent distress, Oriented x3, Obese HEENT: Sclerae nonicteric Neck: JVD not distended Respiratory: Other (Nonlabored breathing.) Cardiovascular: No edema, Regular rate/rhythm Gastrointestinal: Soft and benign, Non-distended Musculoskeletal: No swelling Integumentary: No rashes Neurological: Normal strength at 5/5 x4 extr, Other (No focal motor deficit) Assessment And Plan - Current Problems (Diagnosis) (1) Acute respiratory failure with hypoxia Current Visit: Yes Status: Acute (2) Pseudotumor cerebri Current Visit: Yes Status: Acute (3) Pneumonia due to coronavirus disease 2019 Current Visit: No Status: Acute (4) Obesity Current Visit: No Status: Chronic - Plan Continue IV Solu-Medrol, vitamins supplementation, zinc supplementation. Patient started on Remdesivir therapy. Pulmonary-Dr. Mabry input appreciated Titrate oxygen Monitor blood sugar and watch for steroid induced hyperglycemia. Insulin sliding scale for glucose management. Monitor inflammatory markers.
[2020-08-20 04:22] LABS: Absolute Lymphocytes (CBC) 0.6 K/uL (0.7-4.9); Basophils % 0.3 % (0-1.3); Hematocrit 34.8 % (36.0-45.0); Lymphocytes % 5.2 % (15.3-44.8); MPV 9.3 fL (7.6-11.3); RBC Red Blood Cell Count 4.33 M/uL (3.86-4.86)
[2020-08-20 05:43] LABS: ALT/SGPT 17 U/L (12-78); AST/SGOT 13 U/L (15-37); Albumin 2.4 g/dL (3.4-5.0); Alkaline Phosphatase 60 U/L (45-117); BUN Blood Urea Nitrogen 20 mg/dL (7-18); Bicarbonate 22 mmol/L (21-32); Bilirubin Direct < 0.1 mg/dL (0-0.2); Bilirubin Total 0.2 mg/dL (0.2-1.0); Ferritin 114.6 ng/mL (8-388); Glucose Level 363 mg/dL (74-106); Potassium 3.8 mmol/L (3.5-5.1); Protein, Total 7.4 g/dL (6.4-8.2); Sodium Level 139 mmol/L (136-145)
[2020-08-20 06:05] LABS: Phosphorus 2.5 mg/dL (2.5-4.9)
[2020-08-20] MEDS: INSULIN -REGULAR HUMAN 50 UNIT/0.5 ML ML SQ SCH ×4 (07:30→20:40)
[2020-08-20] MEDS ORDERED: POTASSIUM CL SA 10 MEQ TAB PO ONE (09:00)
[2020-08-20] MEDS: INSULIN GLARGINE 100 UNITS/ML SQ SCH ×2 (09:28→20:41)
[2020-08-20] MEDS ORDERED: GLUCAGON 1 MG/VIAL IM PRN (09:28)
[2020-08-20] MEDS ORDERED: D50W 25 GM/50 ML SYRINGE IV PRN (09:28)
[2020-08-20] MEDS: FAMOTIDINE 20 MG/2 ML VIAL IV SCH ×2 (09:46→20:39)
[2020-08-20] MEDS: acetaZOLAMIDE 250 MG TAB PO SCH ×2 (09:47→20:39)
[2020-08-20] MEDS: APIXABAN 2.5 MG TABLET PO SCH ×2 (09:48→20:39)
[2020-08-20] MEDS: Remdesivir 100 MG in NA CHLORIDE 0.9% 250 ML IV SCH (09:49)
[2020-08-20] MEDS: METHYLPREDNISOLONE 40 MG INJ IV SCH ×2 (09:49→20:39)
--- NOTE | 2020-08-20 12:58 | P.PN ---
Subjective Date of Service: 08/20/20 Chief Complaint: Respiratory failure from monreal virus Subjective: Improving (Patient is improving stable on 4 L of nasal cannula oxygen shortness of breath is better) Review of Systems General: Weakness Respiratory: Shortness of Breath Physical Examination - Vital Signs Temperature: 98.1 F Blood Pressure: 106/64 Pulse: 82 Respirations: 16 Pulse Ox (%): 91 Assessment & Plan - Problems (Diagnosis) (1) Pneumonia due to coronavirus disease 2019 Current Visit: No Status: Acute Plan: Patient is currently improving continue with steroids anti viral therapy setup for home O2 possible discharge in 1 or 2 day blood sugars elevated blood sugars elevated reduce dose of Solu-Medrol to 40 mg twice a day
--- NOTE | 2020-08-20 15:09 | P.PN ---
Subjective Date of Service: 08/20/20 Chief Complaint: Respiratory failure from monreal virus Patient appear stable on oxygen by nasal cannula. Physical Examination - Vital Signs Temperature: 98.1 F Blood Pressure: 106/64 Pulse: 82 Respirations: 16 Pulse Ox (%): 91 - Physical Exam General: Alert, In no apparent distress Neck: JVD not distended Respiratory: Other (Nonlabored breathing.) Cardiovascular: No edema, Regular rate/rhythm Gastrointestinal: Soft and benign, Non-distended Musculoskeletal: No swelling Integumentary: No rashes Neurological: Normal strength at 5/5 x4 extr Assessment And Plan - Current Problems (Diagnosis) (1) Acute respiratory failure with hypoxia Current Visit: Yes Status: Acute (2) Pseudotumor cerebri Current Visit: Yes Status: Acute (3) Pneumonia due to coronavirus disease 2019 Current Visit: No Status: Acute (4) Obesity Current Visit: No Status: Chronic - Plan Continue IV Solu-Medrol, vitamins supplementation, zinc supplementation. Continue Remdesivir therapy. Pulmonary-Dr. Mabry input appreciated Oxygen by nasal cannula. Insulin sliding scale for glucose management. Monitor inflammatory markers. Patient is on Eliquis for thromboembolism prophylaxis. Arranged for home oxygen for discharge.
[2020-08-20] MEDS ORDERED: D50W 25 GM/50 ML VIAL IV PRN (18:00)
[2020-08-21 06:23] LABS: ALT/SGPT 17 U/L (12-78); AST/SGOT 13 U/L (15-37); Albumin 2.3 g/dL (3.4-5.0); Alkaline Phosphatase 51 U/L (45-117); Bilirubin Direct < 0.1 mg/dL (0-0.2); Bilirubin Total 0.2 mg/dL (0.2-1.0); Protein, Total 7.2 g/dL (6.4-8.2)
[2020-08-21] MEDS: FAMOTIDINE 20 MG/2 ML VIAL IV SCH ×2 (08:26→20:46)
[2020-08-21] MEDS: APIXABAN 2.5 MG TABLET PO SCH ×2 (08:26→20:45)
[2020-08-21] MEDS: METHYLPREDNISOLONE 40 MG INJ IV SCH ×2 (08:26→20:46)
[2020-08-21] MEDS: INSULIN -REGULAR HUMAN 50 UNIT/0.5 ML ML SQ SCH ×4 (08:26→20:46)
[2020-08-21] MEDS: acetaZOLAMIDE 250 MG TAB PO SCH ×2 (08:26→20:45)
[2020-08-21] MEDS: Remdesivir 100 MG in NA CHLORIDE 0.9% 250 ML IV SCH (09:13)
--- NOTE | 2020-08-21 11:26 | P.PN ---
Subjective Date of Service: 08/21/20 Chief Complaint: Respiratory failure from monreal virus Subjective: Improving (Patient is doing well still has some shortness of breath on exertion) Review of Systems General: Weakness Respiratory: Shortness of Breath Physical Examination - Vital Signs Temperature: 97 F Blood Pressure: 126/69 Pulse: 79 Respirations: 16 Pulse Ox (%): 93 Assessment & Plan - Problems (Diagnosis) (1) Pneumonia due to coronavirus disease 2019 Current Visit: No Status: Acute Plan: Improving plan for discharge tomorrow 1 more dose of ivermectin initial course of remdesmir discharge a.m. continue with prednisone 20 mg twice a day for a week and then taper to 10 twice a day continue with full anticoagulation oxygen ordered
[2020-08-21] MEDS ORDERED: IVERMECTIN 3 MG TABLET PO ONE (11:45)
--- NOTE | 2020-08-21 18:16 | P.DS ---
Admission Date: 08/18/20 Discharge Date: 08/22/20 Disposition: ROUTINE DISCHARGE Discharge Condition: FAIR Reason for Admission: Respiratory failure from monreal virus - Problems (1) Acute respiratory failure with hypoxia Status: Acute (2) Pseudotumor cerebri Status: Acute (3) Pneumonia due to coronavirus disease 2018 Status: Acute (4) Obesity Status: Chronic Brief History of Present Illness: 39 year old obese woman with a history of pseudotumor cerebri, diagnosed with COVID 19 infection on 08/12/2020, hospitalized a few days ago and discharged to home without oxygen with a prescription for oral prednisone returned to the ED today for increasing shortness of breath. Patient was seen by Dr. Mabry at home and noted to be hypoxic on room air with oxygen saturation in the 80s. Dr. Mabry recommended the patient comes back to the emergency department for hospitalization. She was requiring 2-4 L of oxygen by nasal cannula to keep her oxygen saturation above 90%. Chest x-ray showed worsening bilateral infiltrates. Patient hospitalized for further management. Hospital Course: Patient admitted to the medical floor and treated for COVID pneumonia with IV Solu-Medrol, vitamin supplementation, and zinc supplementation. She was also treated with Remdesivir. Also prescribed Eliquis for thromboembolism prophylaxis. She was requiring insulin for hyperglycemia. Patient was initially requiring about 5 L of oxygen by nasal cannula. This was eventually weaned down and became stable on 2 L. patient reports significant improvement in her symptoms. Patient is discharged with home oxygen, prednisone therapy insulin therapy for steroid induced hyperglycemia. She will follow with Dr. Mabry within 1 week. Vital Signs/Physical Exam: Temp Pulse Resp BP Pulse Ox 97.4 F 79 16 120/78 92 08/21/20 16:00 08/21/20 16:00 08/21/20 16:00 08/21/20 16:00 08/21/20 16:00 General: Alert, In no apparent distress Neck: JVD not distended Respiratory: Dull, Other (Nonlabored breathing.) Cardiovascular: No edema, Regular rate/rhythm Gastrointestinal: Non-distended Musculoskeletal: No swelling Integumentary: No rashes Neurological: Normal strength at 5/5 x4 extr Laboratory Data at Discharge: WBC 10.80 K/uL (4.3-10.9) D 08/20/20 03:06 Hgb 11.5 g/dL (12.0-15.0) L 08/20/20 03:06 Hct 34.8 % (36.0-45.0) L 08/20/20 03:06 Plt Count 339 K/uL (152-406) D 08/20/20 03:06 Sodium 139 mmol/L (136-145) 08/20/20 03:06 Potassium 3.8 mmol/L (3.5-5.1) 08/20/20 03:06 BUN 20 mg/dL (7-18) H 08/20/20 03:06 Creatinine 0.75 mg/dL (0.55-1.3) 08/20/20 03:06 Glucose 466 mg/dL (74-106) H* 08/20/20 21:07 Phosphorus 2.5 mg/dL (2.5-4.9) 08/20/20 03:06 Magnesium 2.7 mg/dL (1.8-2.4) H D 08/19/20 03:21 Total Bilirubin 0.2 mg/dL (0.2-1.0) 08/21/20 03:33 AST 13 U/L (15-37) L 08/21/20 03:33 ALT 17 U/L (12-78) 08/21/20 03:33 Alkaline Phosphatase 51 U/L (45-117) 08/21/20 03:33 Triglycerides 208 mg/dL (<150) H 08/19/20 03:21 Cholesterol 184 mg/dL (<200) 08/19/20 03:21 HDL Cholesterol 32 mg/dL (40-60) L 08/19/20 03:21 Cholesterol/HDL Ratio 5.75 08/19/20 03:21 Home Medications: Acetazolamide [Diamox Sequels] 500 tab PO BID 06/16/14 Amitriptyline HCl 25 mg PO BID 02/16/18 Amlodipine Besylate [Norvasc] 5 mg PO DAILY 05/07/19 Ascorbic Acid [Vitamin C*] 500 mg PO QID tablet 08/16/20 Benzonatate [Tessalon Perle*] 100 mg PO TID PRN #20 cap 08/16/20 Ondansetron [Zofran (Odt)*] 4 mg PO Q6H PRN #15 tab 08/16/20 Thiamine HCl [Vitamin B-1*] 200 mg PO DAILY tablet 08/16/20 Zinc Sulfate [Zinc Sulfate*] 200 mg PO DAILY 08/18/20 Alcohol Antiseptic Pads [Alcohol Prep Pads] 1 each TP TID #100 med..pad 08/21/20 Apixaban [Eliquis] 5 mg PO BID #60 tablet 08/21/20 Blood-Glucose Meter [Contour] 1 each MC TID #1 kit 08/21/20 Cholecalciferol (Vitamin D3) [Vitamin D 1000 Iu Tab*] 4,000 unit PO DAILY #120 tab 08/21/20 Insulin Glargine,Hum.rec.anlog [Lantus Solostar] 15 unit SQ DAILY #6 ml 08/21/20 Lancets [Lancets Ultra Thin] 1 each MC TID #100 each 08/21/20 predniSONE [Prednisone] 20 mg PO BID 10 Days #20 tablet 08/21/20 New Medications: Alcohol Antiseptic Pads [Alcohol Prep Pads] 1 each TP TID #100 med..pad Blood-Glucose Meter [Contour] 1 each MC TID #1 kit Apixaban [Eliquis] 5 mg PO BID #60 tablet Lancets [Lancets Ultra Thin] 1 each MC TID #100 each Insulin Glargine,Hum.rec.anlog [Lantus Solostar] 15 unit SQ DAILY #6 ml predniSONE [Prednisone] 20 mg PO BID 10 Days #20 tablet Cholecalciferol (Vitamin D3) [Vitamin D 1000 Iu Tab*] 4,000 unit PO DAILY #120 tab Diet: ADA Activity: Ad nacho Followup: Everett Mabry MD [ACTIVE - CAN ADMIT] - 1 Week (call to schedule appointment.) Wendy Haji MD [Primary Care Provider] - Time spent managing pt's care (in minutes): 38
--- NOTE | 2020-08-21 18:58 | P.PN ---
Subjective Date of Service: 08/21/20 Chief Complaint: Respiratory failure from monreal virus Patient appear stable on oxygen by nasal cannula. Physical Examination - Vital Signs Temperature: 97.4 F Blood Pressure: 120/78 Pulse: 79 Respirations: 16 Pulse Ox (%): 92 - Physical Exam General: Alert, In no apparent distress Respiratory: Other (Nonlabored breathing.) Cardiovascular: No edema, Regular rate/rhythm Gastrointestinal: Non-distended Musculoskeletal: No swelling Integumentary: No rashes Neurological: Normal strength at 5/5 x4 extr Assessment And Plan - Current Problems (Diagnosis) (1) Acute respiratory failure with hypoxia Current Visit: Yes Status: Acute (2) Pseudotumor cerebri Current Visit: Yes Status: Acute (3) Pneumonia due to coronavirus disease 2019 Current Visit: No Status: Acute (4) Obesity Current Visit: No Status: Chronic - Plan Continue IV Solu-Medrol, vitamins supplementation, zinc supplementation. Continue Remdesivir therapy. Patient to complete Remdesivir tomorrow. Pulmonary-Dr. Mabry is follow Continue Oxygen by nasal cannula. Insulin sliding scale for glucose management. Added Lantus insulin for blood glucose control. Monitor inflammatory markers. Patient is on Eliquis for thromboembolism prophylaxis.
[2020-08-21] MEDS: INSULIN GLARGINE 100 UNITS/ML SQ SCH (20:45)
[2020-08-22 04:15] LABS: ALT/SGPT 26 U/L (12-78); AST/SGOT 21 U/L (15-37); Albumin 2.6 g/dL (3.4-5.0); Alkaline Phosphatase 51 U/L (45-117); Bilirubin Direct < 0.1 mg/dL (0-0.2); Bilirubin Total 0.3 mg/dL (0.2-1.0); Protein, Total 7.3 g/dL (6.4-8.2)
[2020-08-22] MEDS: INSULIN -REGULAR HUMAN 50 UNIT/0.5 ML ML SQ SCH ×2 (08:00→11:30)
[2020-08-22] MEDS: FAMOTIDINE 20 MG/2 ML VIAL IV SCH (08:01)
[2020-08-22] MEDS: METHYLPREDNISOLONE 40 MG INJ IV SCH (08:01)
[2020-08-22] MEDS: APIXABAN 2.5 MG TABLET PO SCH (08:01)
[2020-08-22] MEDS: acetaZOLAMIDE 250 MG TAB PO SCH (08:01)
[2020-08-22] MEDS: Remdesivir 100 MG in NA CHLORIDE 0.9% 250 ML IV SCH (09:02)
[2020-08-22 11:52] VITALS: O2SAT 97
[2020-08-22 12:28] VITALS: BP 130/85; TEMP 96.9
== END 2020-08-22 12:15 | disposition home or self-care (01) | DRG 177 ==
LOC: ER 12:13 → ERHOLD 17:51 → 4TH 20:16
PROVIDERS: ADMIT Internal Medicine; ATTEND Internal Medicine
PROC: XW033E5 Introduction of Remdesivir Anti-infective into Peripheral Vein, Percutaneous Approach, New Technology Group 5 (ICD-10-PCS; principal; 2020-08-19)
DX: U07.1 COVID-19 (principal); J96.01 Acute respiratory failure with hypoxia; J12.82 Pneumonia due to coronavirus disease 2019; Z68.42 Body mass index [BMI] 45.0-49.9, adult; E66.9 Obesity, unspecified; G93.2 Benign intracranial hypertension; R73.9 Hyperglycemia, unspecified; Z79.899 Other long term (current) drug therapy; Z88.1 Allergy status to other antibiotic agents; Z88.8 Allergy status to other drugs, medicaments and biological substances; Z91.041 Radiographic dye allergy status; Z79.82 Long term (current) use of aspirin; Z79.52 Long term (current) use of systemic steroids; Z98.51 Tubal ligation status; Z56.0 Unemployment, unspecified; Z79.4 Long term (current) use of insulin
CPT/HCPCS: 36415; 71045; 80048; 80053; 80061; 80076; 82728; 82947; 83735; 84100; 84145; 85025; 86140; 94760; 96374; 99285; J1815; J2920; J2930; J7050

== ENCOUNTER 2021-08-14 17:17 | Emergency (ER) | payer BC, OTHER ==
--- OUTSIDE RECORDS SUMMARY | 2021-08-14 17:20 | XMS REPORT | Continuity of Care Document ---
:1980 Author Organization [facility] t Address [address] [place] [address] Dr. Chavez. [address] [place] [address] Care Team Providers Name Role Phone Asked, Pcp Primary Care Physician Unavailable Only, Db Test Attending Clinician Unavailable Fredrick TANNER Attending Clinician Lab, Fam Pob I Attending Clinician Unavailable Marysol DELANEYP Attending Clinician MARYSOL Attending Clinician Unavailable Doctor Unassigned, Name Attending Clinician Unavailable Payers Payer Name Policy Type Policy Number Effective Date Expiration Date S tati NEFF II [id number] 2020 00:00:00 Problems Condition Condition Condition Status Onset Resolution Last Treating Co mments Source Name Details Category Date Date Treatment Clinician Date Kidney Kidney Disease Active [facility] 00 l Allergies, Adverse Reactions, Alerts Allergy Allergy Status Severity Reaction(s) Onset Inactive Treating Comm ents Source Name Type Date Date Clinician Iodine Propensi Active Shortness Of Injectabl Methodi And ty to Breath 02-[address] Iodide adverse 00:00: Hospita Containi reaction 00 l ng s to Products drug Sulfa Propensi Active Rash Methodi (Sulfona ty to 02-13 st mide adverse 00:00: Hospita Antibiot reaction 00 l ics) s to drug NO KNOWN Drug Active Univers ALLERGIE Class ity of S [facility] Family History Family Member Diagnosis Comments Start Date Stop Date Source Natural father Diabetes [facility] father Heart disease [facility] father Hypertension [facility] mother Diabetes [facility] Natural mother Heart disease [facility] Natural mother Hypertension [facility] Natural sister Diabetes [facility] brother Urolithiasis [facility] Social History Social Habit Start Date Stop Date Quantity Comments Source History [facility] Alcohol Frequency History [facility] Alcohol Std Drinks History SDOH [facility] Alcohol Binge Exposure to Yes [facility] of SARS-CoV-2 [facility] (event) Branch Alcohol intake 2017-02-13 2017-02-13 .14 /d [facility] 00:00:00 00:00:00 Alcohol Comment 2017-02-13 2017-02-13 rarely -last [facility] 00:00:00 00:00:00 weks ago Sex Assigned At [birth year] [facility] Smoking Status Start Date Stop Date Source Unknown if ever smoked [facility] Never smoked tobacco [facility] Medications Ordered Filled Start Stop Current Ordering Indication Dosage Frequency Signature Comments Components Source Medication Medication Date Date Medication? Clinician (SIG) Name Name acetaZOLAMI Yes 500mg Q.5D Take 500 M ethodi DE (DIAMOX) 9-[address] 500 mg 15:22: mouth 2 Hospita capsule 57 (two) l times a day. topiramate Yes 25mg Q.5D Take 25 mg M ethodi (TOPAMAX) 9-[address] 25 MG 15:22: (two) Hospita tablet 57 times a l day. losartan Yes 50mg QD Take 50 mg Met hodi (COZAAR) 50 9-[address] MG tablet 15:22: daily. Hospit a 57 l Procedures This patient has no known procedures. Plan of Care Planned Activity Planned Date Details Comments Source Future Scheduled 2021-06-29 COVID-19 VACCINE [facility] Test 14:15:52 (1) [code = COVID-19 VACCINE (1)] Future Scheduled 2021-06-[address] [facility] Test 14:15:52 malignant neoplasm of cervix (procedure) [code = 894334827] Future Scheduled 2021-06-29 INFLUENZA VACCINE Method [facility] Test 14:15:52 [code = INFLUENZA VACCINE] Encounters Start End Encounter Admission Attending Care Care Encounter Source Date/Time Date/Time Type Type Clinicians Facility Department ID 2021-01-30 2021-01-30 Outpatient [facility] [id number] Univers 11:25:00 11:25:00 [id number] ity [facility] 2021-01-30 2021-01-30 Outpatient R [facility] [id number] Univers 11:25:00 11:25:00 ity [facility] 2021-01-30 2021-01-30 Laboratory Only, Ang Db Test RUST 1.2.8 [id number] Univers 10:58:23 11:13:23 Only Song, [facility] [id number] [facility] [place] [id number] Jose as Edgar?Blea [phone] Mo cristina villagran [address] [place] [address] Office Building 2020-08-13 2020-08-13 Laboratory Lab, [facility] [id number] 16:46:49 17:06:49 Only Fam Pob I Health [id number] [place] [id number] Professio [phone] nal [facility] Office Building One 2020-08-13 2020-08-13 Laboratory Lab, [facility] Fam Pob I RUST 1.2. [id number] Univers 16:46:49 17:06:49 Only Devon [facility] [id number] [facility] [place] [id number] Jose as Professio [id number] Mo konstant[address] Office Building One 2020-08-13 2020-08-13 Outpatient R MARYSOL [facility] [id number] Univers 17:00:00 17:00:00 DEVON ity [facility] 2020-08-13 2020-08-13 Letter Doctor IRIZARRY [id number] 00:00:00 00:00:00 (Out) Unassigned, [place] [id number] [facility] [id number] [id number] 2020-08-13 2020-08-13 Letter Doctor IRIZARRY [id number] Univers 00:00:00 00:00:00 (Out) Unassigned, [place] [id number] [facility] [place] [facility] [id number] Jose as [phone] [facility] 044 Branch Results This patient has no known results.
--- NOTE | 2021-08-14 18:00 | EDPHYS ---
Physician Documentation [facility] Name: Melba Centeno Age: 40 yrs Sex: Female : 1980 Arrival Date: 08/14/2021 Time: 17:19 Bed 10 Private MD: Srinivas Ramon ED Physician Gordon Che HPI: 08/14 17:58 This 40 yrs old Female presents to ER via Ambulatory with complaints of pm1 Swollen Glands, Facial Swelling. 17:58 Onset: The symptoms/episode began/occurred yesterday. Associated signs and symptoms: pm1 Pertinent positives: earache, Pertinent negatives: fever, sore throat, dental pain. Modifying factors: The patient symptoms are alleviated by nothing, the patient symptoms are aggravated by nothing. The patient has not experienced similar symptoms in the past. The patient has not recently seen a physician. Patient presenting with primary complaint of right sided neck lymphadenopathy but patient with right ear pain. SLIMER: 17:42 LMP 07/31/2021 vg1 Historical: - Allergies: 17:41 Iodinated Contrast Media - IV Dye; vg1 17:41 Losartan; vg1 17:41 Sulfa (Sulfonamide Antibiotics); vg1 - Home Meds: 17:42 Metoprolol Tartrate Oral [Active]; Insulin: Regular Sub-Q [Active]; vg1 17:44 atorvastatin oral [Active]; vg1 - PMHx: 17:41 intracranial hypertension; vg1 17:42 Diabetes mellitus; Hypertensive disorder; vg1 17:44 Hypercholesterolemia; vg1 - PSHx: 17:42 section; vg1 - Immunization history:: Client reports receiving the 2nd dose of the Covid vaccine. - Social history:: Smoking status: Patient denies any tobacco usage or history of. ROS: 17:58 Constitutional: Negative for fever, chills, and weight loss. pm1 17:58 Cardiovascular: Negative for chest pain, palpitations, and edema, Respiratory: Negative for shortness of breath, cough, wheezing, and pleuritic chest pain, Skin: Negative for injury, rash, and discoloration, Neuro: Negative for headache, weakness, numbness, tingling, and seizure. 17:58 ENT: Positive for ear pain, Negative for sore throat, dental pain. 17:58 Neck: Positive for swollen nodes, Right side of neck. 17:58 All other systems are negative. Exam: 17:58 Constitutional: This is a well developed, well nourished patient who is awake, alert, pm1 and in no acute distress. Head/Face: Normocephalic, atraumatic. 17:58 Skin: Warm, dry with normal turgor. Normal color with no rashes, no lesions, and no evidence of cellulitis. MS/ Extremity: Pulses equal, no cyanosis. Neurovascular intact. Full, normal range of motion. 17:58 Eyes: Exam is negative for acute changes, Periorbital structures: appear normal, Extraocular movements: no acute changes. 17:58 ENT: External ear(s): swelling, that is minimal, of the right ear canal, Ear canal(s): swelling, that is minimal, of the right canal, TM's: no acute changes, Posterior pharynx: no acute changes, Dental exam: no acute changes, Voice: no acute changes. 17:58 Neck: ROM/movement: no acute changes, Lymph nodes: Positive for right side anterior lymphadenopathy. 17:58 Cardiovascular: Exam negative for acute changes, Rate: normal, Rhythm: regular, Pulses: no pulse deficits are appreciated. 17:58 Respiratory: Exam negative for acute changes, respiratory distress, shortness of breath, Breath sounds: are clear throughout. 17:58 Neuro: Exam negative for acute changes, Orientation: is normal, Motor: is normal, moves all fours. Vital Signs: 17:39 BP 135 / 99; Pulse 100; Resp 17; Temp 98.9; Pulse Ox 98% ; Weight 104.33 kg; Height 5 vg1 ft. 0 in. (152.40 cm); Pain 0/10; 17:39 Body Mass Index 44.92 (104.33 kg, 152.40 cm) vg1 MDM: 17:52 Patient medically screened. pm1 17:58 Data reviewed: vital signs, nurses notes. Data interpreted: Pulse oximetry:. pm1 Counseling: I had a detailed discussion with the patient and/or guardian regarding: the historical points, exam findings, and any diagnostic results supporting the discharge/admit diagnosis, the need for outpatient follow up, an ENT specialist, to return to the emergency department if symptoms worsen or persist or if there are any questions or concerns that arise at home. Administered Medications: No medications were administered Disposition: 08/15 01:52 Co-signature as Attending Physician, Gordon Che DO I agree with the assessment and ms3 plan of care. Disposition Summary: 08/14/21 17:59 Discharge Ordered Location: Home pm1 Problem: new pm1 Symptoms: have improved pm1 Condition: Stable pm1 Diagnosis - Other otitis externa, right ear pm1 Followup: pm1 - With: Emergency Department - When: As needed - Reason: Worsening of condition Followup: pm1 - With: Private Physician - When: 2 - 3 days - Reason: Recheck today's complaints, Continuance of care, Re-evaluation by your physician Discharge Instructions: - Discharge Summary Sheet pm1 - Ear Drops, Adult pm1 - Otitis Externa pm1 Forms: - Medication Reconciliation Form pm1 - Thank You Letter pm1 - Antibiotic Education pm1 - Prescription Opioid Use pm1 Prescriptions: - hydrocoritsone/neomycin/polymyxin otic 10mg (1%)/3.5mg (0.35%)/71485 units/10mL - instill 4 drop by OTIC route every 6 hours for 10 days; 1 bottle; Refills: 0, pm1 Product Selection Permitted - Doxycycline Hyclate 100 mg Oral Tablet - take 1 tablet by ORAL route every 12 hours; 20 tablet; Refills: 0, Product pm1 Selection Permitted Signatures: Dilshad Rapp NP COLOR EXPERT pm1 Gay Walsh RN RN vg1 Gordon Che DO DO ms3
--- NOTE | 2021-08-14 18:00 | ER ---
Nurse's Notes [facility] Name: Melba Centeno Age: 40 yrs Sex: Female : 1980 Arrival Date: 08/14/2021 Time: 17:19 Bed 10 Private MD: Srinivas Ramon Diagnosis: Other otitis externa, right ear Presentation: 08/14 17:39 Chief complaint: Patient states: Right ear pain/swelling; states feels a small lump vg1 near right side of neck. Denies pain, fever, cough, or sore throat. Coronavirus screen: Vaccine status: Patient reports receiving the 2nd dose of the covid vaccine. Client denies travel out of the [place] in the last 14 days. Ebola Screen: Patient negative for fever greater than or equal to 101.5 degrees Fahrenheit, and additional compatible Ebola Virus Disease symptoms. Initial Sepsis Screen: Does the patient meet any 2 criteria? No. Patient's initial sepsis screen is negative. Does the patient have a suspected source of infection? No. Patient's initial sepsis screen is negative. Risk Assessment: Do you want to hurt yourself or someone else? Patient reports no desire to harm self or others. Onset of symptoms was August 13, 2021. 17:39 Method Of Arrival: Ambulatory vg1 17:39 Acuity: TAHIR 4 vg1 Triage Assessment: 17:42 General: Appears in no apparent distress. uncomfortable, Behavior is calm, cooperative. vg1 Pain: Denies pain. [employer]: 17:42 LMP 07/31/2021 vg1 Historical: - Allergies: 17:41 Iodinated Contrast Media - IV Dye; vg1 17:41 Losartan; vg1 17:41 Sulfa (Sulfonamide Antibiotics); vg1 - Home Meds: 17:42 Metoprolol Tartrate Oral [Active]; Insulin: Regular Sub-Q [Active]; vg1 17:44 atorvastatin oral [Active]; vg1 - PMHx: 17:41 intracranial hypertension; vg1 17:42 Diabetes mellitus; Hypertensive disorder; vg1 17:44 Hypercholesterolemia; vg1 - PSHx: 17:42 section; vg1 - Immunization history:: Client reports receiving the 2nd dose of the Covid vaccine. - Social history:: Smoking status: Patient denies any tobacco usage or history of. Screenin:51 Abuse screen: Denies threats or abuse. Nutritional screening: No deficits noted. ss7 Tuberculosis screening: No symptoms or risk factors identified. Fall Risk None identified. Assessment: 17:50 General: Appears in no apparent distress. distressed, comfortable, Behavior is calm, ss7 cooperative, appropriate for age. Pain: Denies pain. Cardiovascular: No deficits noted. Respiratory: No deficits noted. GI: No deficits noted. : No deficits noted. EENT: Ear canal swollen and erythematous. Derm: No deficits noted. Vital Signs: 17:39 BP 135 / 99; Pulse 100; Resp 17; Temp 98.9; Pulse Ox 98% ; Weight 104.33 kg; Height 5 vg1 ft. 0 in. (152.40 cm); Pain 0/10; 17:39 Body Mass Index 44.92 (104.33 kg, 152.40 cm) vg1 ED Course: 17:19 Patient arrived in ED. as 17:19 Srinivas Ramon MD is Private Physician. as 17:41 Triage completed. vg1 17:42 Arm band placed on. vg1 17:46 Dilshad Rapp NP is PHCP. pm1 17:46 Gordon Che DO is Attending Physician. pm1 17:48 Rachell Cervantes RN is Primary Nurse. ss7 17:51 Patient has correct armband on for positive identification. ss7 17:51 No provider procedures requiring assistance completed. Patient did not have IV access ss7 during this emergency room visit. Administered Medications: No medications were administered Outcome: 17:59 Discharge ordered by MD. pm1 18:03 Discharged to home ambulatory. ss7 18:03 Condition: good 18:03 Discharge instructions given to patient, Instructed on discharge instructions, follow up and referral plans. Demonstrated understanding of instructions, follow-up care, medications. 18:16 Patient left the ED. ss7 Signatures: Emily Thorne Patrick, NP CHILD LIFE THERAPIST pm1 Gay Walsh RN RN vg1 Rachell Cervantes RN RN ss7 Corrections: (The following items were deleted from the chart) 17:42 17:39 Pulse 100bpm; Resp 17bpm; Pulse Ox 98%; 104.33 kg; Height 5 ft. 0 in.; BMI: 44.9; vg1 Pain 0/10; vg1
[2021-08-14 18:28] VITALS: BP 135/99; TEMP 98.9; O2SAT 98
== END 2021-08-14 18:16 | disposition home or self-care (01) ==
LOC: ER 17:17
DX: H60.8X1 Other otitis externa, right ear (principal); E11.9 Type 2 diabetes mellitus without complications; E78.00 Pure hypercholesterolemia, unspecified; I10 Essential (primary) hypertension
CPT/HCPCS: 99281